=== PATIENT | female | born 1970 | race American Indian/Alaskan Native ===

== ENCOUNTER 2017-02-04 21:51 | Emergency (ER) | payer MEDICAID ==
[2017-02-04 21:51] VITALS: BMI 25.8
[2017-02-04 22:03] VITALS: BP 164/97; RESP 16; TEMP 99.1; O2SAT 98
[2017-02-04] MEDS ORDERED: Albuterol 0.083% Inhal Sol (2.5 mg/3 mL) UD INH STA (22:19)
--- NOTE | 2017-02-04 22:27 | ED PDOC ---
HPI: General Adult Time Seen by Provider: 02/04/17 22:11 Chief Complaint (Nursing): Cough, Cold, Congestion History Per: Patient History/Exam Limitations: clinical condition Additional Complaint(s): Pt. states for the past 2 weeks she's had a cough productive of yellow sputum associated with wheezing and chest pain present only with coughing. Pt. states 1 month ago she was treated for a cough with antibiotics but did not stay in the hospital. Denies fever, hemoptysis, WELLS, chest pain at rest, orthopnea, leg swelling. Past Medical History Reviewed: Historical Data, Nursing Documentation, Vital Signs Vital Signs: Last Vital Signs Temp 99.1 F 02/04/17 22:01 Pulse 78 02/04/17 22:30 Resp 16 02/04/17 22:01 BP 164/97 H 02/04/17 22:01 Pulse Ox 98 02/04/17 22:30 - Medical History PMH: Anemia (secondary to heavy menstruation), Anxiety, Arthritis, Asthma, CAD, CHF, CVA, Depression, Diabetes, Gastritis, Gastrointestinal Ulcer, HTN, Hypercholesterolemia, Hyperlipidemia, Hyperthyroidism (HYPERPARATHYROID), Kidney Stones, Multiple Sclerosis, Parkinson's Disease, Pneumonia (08-19-15), Chronic Kidney Disease, TIA - Surgical History Surgical History: Hernia Repair (Umbilical hernia repair) - Family History Family History: States: Unknown Family Hx - Immunization History Hx Tetanus Toxoid Vaccination: Yes Hx Influenza Vaccination: Yes Hx Pneumococcal Vaccination: Yes - Home Medications Home Medications: Ambulatory Orders Medication Instructions Recorded Famotidine 20 mg PO BID 10/22/16 Gabapentin 300 mg PO BID 10/22/16 Losartan Potassium [Cozaar] 100 mg PO DAILY #30 tablet 10/26/16 Aluminum Hydroxide/Magnesium H 30 ml PO DAILY 01/31/17 [Maalox 30 ml] Azithromycin [Zithromax] 250 mg PO DAILY #6 tab 02/05/17 - Allergies Allergies/Adverse Reactions: Allergies Allergy/AdvReac Type Severity Reaction Status Date / Time aspirin Allergy SHORTNESS Verified 10/24/16 16:08 OF BREATH codeine Allergy RASH Verified 10/24/16 16:08 iodine Allergy SHORTNESS Verified 10/24/16 16:08 OF BREATH ketorolac Allergy SHORTNESS Verified 10/24/16 16:08 OF BREATH ketorolac tromethamine Allergy RASH Verified 10/24/16 16:08 [From Toradol] Latex, Natural Rubber Allergy SHORTNESS Verified 10/24/16 16:08 OF BREATH metoprolol Allergy SHORTNESS Verified 10/24/16 16:08 OF BREATH morphine Allergy SHORTNESS Verified 10/24/16 16:08 OF BREATH orange juice Allergy SHORTNESS Verified 10/24/16 16:08 OF BREATH Penicillins Allergy SHORTNESS Verified 10/24/16 16:08 OF BREATH simvastatin Allergy RASH Verified 10/24/16 16:08 Sulfa (Sulfonamide Allergy RASH Verified 10/24/16 16:08 Antibiotics) tomato Allergy ITCHING Verified 10/24/16 16:08 tramadol Allergy SHORTNESS Verified 10/24/16 16:08 OF BREATH ondansetron HCl AdvReac Intermediate RASH Verified 10/24/16 16:08 [From Zofran (as hydrochloride)] Review of Systems ROS Statement: Except As Marked, All Systems Reviewed And Found Negative Respiratory: Positive for: Cough, Wheezing Physical Exam - Reviewed Nursing Documentation Reviewed: Yes Vital Signs Reviewed: Yes - Physical Exam Appears: Positive for: Well, Non-toxic, No Acute Distress Head Exam: Positive for: ATRAUMATIC, NORMAL INSPECTION, NORMOCEPHALIC Skin: Positive for: Normal Color, Warm. Negative for: Rash Eye Exam: Positive for: EOMI, Normal appearance, PERRL ENT: Positive for: Normal ENT Inspection Neck: Positive for: Normal, Painless ROM Cardiovascular/Chest: Positive for: Regular Rate, Rhythm Respiratory: Positive for: Wheezing (b/l minimal expiratory wheezing). Negative for: Decreased Breath Sounds, Accessory Muscle Use, Crackles, Rales, Rhonchi, Respiratory Distress Gastrointestinal/Abdominal: Positive for: Normal Exam, Soft. Negative for: Tenderness Back: Positive for: Normal Inspection. Negative for: L CVA Tenderness, R CVA Tenderness Extremity: Positive for: Normal ROM, Other (resting tremors noted). Negative for: Calf Tenderness (or swelling b/l) Neurologic/Psych: Positive for: Alert, Oriented - Laboratory Results Result Diagrams: 02/04/17 23:30 02/04/17 23:30 - ECG ECG: Positive for: Interpreted By Me ECG Rhythm: Positive for: Sinus Rhythm. Negative for: ST/T Changes Rate: 78 O2 Sat by Pulse Oximetry: 98 - Radiology X-Ray: Interpreted by Me (CXR) X-Ray Interpretation: No Acute Disease - Progress ED Course And Treament: Labs ordered. Albuterol x 2 ordered. EKG ordered. Pt. placed on cafeteria monitor. Re-evaluation Time: 00:55 (Lungs clear b/l. ) Condition: Re-examined, Improved Disposition - Clinical Impression Clinical Impression: Acute bronchitis - Patient ED Disposition Is Patient to be Admitted: No - Disposition Disposition: Routine/Home Disposition Time: 00:55 Condition: IMPROVED Prescriptions: Azithromycin [Zithromax] 250 mg PO DAILY #6 tab Instructions: Acute Bronchitis (ED) Print Language: SLOVENIAN
[2017-02-04 22:33] VITALS: PULSE 78
[2017-02-04] MEDS ORDERED: Albuterol 0.083% Inhal Sol (2.5 mg/3 mL) UD ONE (22:37)
[2017-02-04 23:44] LABS: BASO # 0.1 K/uL (0.0-0.2); BASO % 1.1 % (0.0-2.0); EOS # 0.1 K/uL (0.0-0.7); EOS % 1.6 % (0.0-4.0); HEMATOCRIT 29.9 % (34.0-47.0); LYMPH # 2.4 K/uL (1.0-4.3); MEAN CELL VOLUME 79.7 fl (81.0-99.0); MEAN CORPUSCULAR HEMOGLOBIN 23.9 pg (27.0-31.0); MEAN PLATELET VOLUME 8.5 fl (7.2-11.7); MONO # 0.5 K/uL (0.0-0.8); MONO % 9.6 % (0.0-10.0); NEUT # 2.1 K/uL (1.8-7.0); NEUT % 41.7 % (50.0-75.0); NRBC % 0.1 % (0.0-0.0); RED CELL DISTRIBUTION WIDTH 16.6 % (11.5-14.5); WHITE BLOOD COUNT 5.1 K/uL (4.8-10.8)
[2017-02-04 23:56] LABS: ALB/GLOB RATIO 1.2 (1.0-2.1); ALKALINE PHOSPHATASE 62 U/L (38-126); ALT/SGPT 24 U/L (9-52); AST/SGOT 24 U/L (14-36); BILIRUBIN,TOTAL 0.4 mg/dl (0.2-1.3); BLOOD UREA NITROGEN 18 mg/dl (7-17); CALCIUM 10.9 mg/dL (8.4-10.2); CARBON DIOXIDE 28 mmol/L (22-30); CHLORIDE 104 mmol/L (98-107); GFR AFRICAN-AMERICAN > 60; GLUCOSE,RANDOM 95 mg/dL (65-105); POTASSIUM 3.4 MMOL/L (3.6-5.0); SODIUM 141 mmol/l (132-148); TOTAL PROTEIN 7.3 G/DL (6.3-8.2)
--- NOTE | 2017-02-05 09:28 | RAD ---
HISTORY: Cough. COMPARISON: 10/25/2016. FINDINGS: LUNGS: No active pulmonary disease. PLEURA: No significant pleural effusion identified, no pneumothorax apparent. CARDIOVASCULAR: No radiographic findings to suggest acute or significant cardiovascular disease. OSSEOUS STRUCTURES: No significant abnormalities. VISUALIZED UPPER ABDOMEN: Normal. OTHER FINDINGS: None. IMPRESSION: No active disease. No significant interval change compared to the prior examination(s).
--- NOTE | 2017-02-06 16:39 | CARD ---
APPROVED REPORT EKG Measurement Heart [id number] ID [id number] <Conclusion> Normal sinus rhythm Moderate voltage criteria for LVH, may be normal variant Borderline ECG
== END 2017-02-05 02:30 | disposition home or self-care (01) ==
LOC: H.ER 21:51
DX: J06.9 Acute upper respiratory infection, unspecified (principal); R05 Cough

== ENCOUNTER 2017-05-27 13:25 | Emergency (ER) | payer MEDICAID ==
[2017-05-27 13:26] VITALS: BMI 22.7
[2017-05-27 13:54] VITALS: BP 158/99
--- NOTE | 2017-05-27 14:04 | ED PDOC ---
HPI: Chest Pain Time Seen by Provider: 05/27/17 13:37 Chief Complaint (Nursing): Chest Pain Chief Complaint (Provider): Chest Pain History Per: Patient History/Exam Limitations: no limitations Additional Complaint(s): 46 y/o female presents to the emergency department with a complaint of worsening chest pain and joint pain. Associated with cough, sputum, shortness of breath, and headache. Reports taking Ibuprofen 3 times a day and gabapentin 2 times a day without improvement. States she told Dr. Soliman her symptoms and wrote her a referral to see a curb setter. Patient has multiple visited within our facility which include 2 visits within this month. Denies fever, diarrhea, or vomiting. Past Medical History Reviewed: Historical Data, Nursing Documentation, Vital Signs Vital Signs: Last Vital Signs Temp 98.0 F 05/27/17 13:29 Pulse 93 H 05/27/17 13:54 Resp 20 05/27/17 13:54 BP 158/99 H 05/27/17 13:54 Pulse Ox 99 05/27/17 14:04 - Medical History PMH: Anemia (secondary to heavy menstruation), Anxiety, Arthritis, Asthma, Bronchitis, CAD, CHF, COPD, CVA, Depression, Diabetes, Gastritis, Gastrointestinal Ulcer, HTN, Hypercholesterolemia, Hyperlipidemia, Hyperthyroidism (hyperthyroidism), Kidney Stones, Multiple Sclerosis, Parkinson' s Disease, Pneumonia (08-19-15), Chronic Kidney Disease, TIA - Surgical History Surgical History: Hernia Repair (Umbilical hernia repair) - Family History Family History: States: Unknown Family Hx - Immunization History Hx Tetanus Toxoid Vaccination: Yes Hx Influenza Vaccination: Yes Hx Pneumococcal Vaccination: Yes - Home Medications Home Medications: Ambulatory Orders Medication Instructions Recorded Albuterol HFA [Ventolin HFA 90 2 puff IH [id number] 05/20/17 mcg/actuation (8 g)] Atorvastatin [Lipitor] 20 mg PO DAILY 05/20/17 Cetirizine HCl [Zyrtec Allergy] 10 mg PO DAILY 05/20/17 Cholecalciferol [Vitamin D] 5,000 unit PO QWK 05/20/17 Cyclobenzaprine [Cyclobenzaprine 10 mg PO TID #14 tab 05/20/17 HCl] Famotidine [Pepcid] 40 mg PO DAILY 05/20/17 Ibuprofen [Motrin] 600 mg PO TID 05/20/17 Indomethacin [Indocin] 25 mg PO BID 05/20/17 Naproxen [Naprosyn Tab] 250 mg PO BID 05/20/17 - Allergies Allergies/Adverse Reactions: Allergies Allergy/AdvReac Type Severity Reaction Status Date / Time acetaminophen Allergy ITCHING Verified 05/27/17 13:29 codeine Allergy RASH Verified 05/27/17 13:29 iodine Allergy ITCHING Verified 05/27/17 13:29 ketorolac Allergy ITCHING Verified 05/27/17 13:29 ketorolac tromethamine Allergy RASH Verified 05/27/17 13:29 [From Toradol] Latex, Natural Rubber Allergy ITCHING Verified 05/27/17 13:29 morphine Allergy ITCHING Verified 05/27/17 13:29 orange juice Allergy ITCHING Verified 05/27/17 13:29 Penicillins Allergy ITCHING Verified 05/27/17 13:29 Sulfa (Sulfonamide Allergy RASH Verified 05/27/17 13:29 Antibiotics) tomato Allergy ITCHING Verified 05/27/17 13:29 tramadol Allergy ITCHING Verified 05/27/17 13:29 ondansetron HCl AdvReac Intermediate RASH Verified 05/27/17 13:29 [From Zofran (as hydrochloride)] Review of Systems ROS Statement: Except As Marked, All Systems Reviewed And Found Negative Constitutional: Negative for: Fever Cardiovascular: Positive for: Chest Pain Respiratory: Positive for: Cough, Shortness of Breath, Sputum Gastrointestinal: Negative for: Vomiting, Diarrhea Musculoskeletal: Positive for: Other (Joint pain) Neurological: Positive for: Headache Physical Exam - Reviewed Nursing Documentation Reviewed: Yes Vital Signs Reviewed: Yes - Physical Exam Appears: Positive for: Non-toxic, No Acute Distress Head Exam: Positive for: ATRAUMATIC, NORMAL INSPECTION, NORMOCEPHALIC Skin: Positive for: Normal Color, Warm, Dry Neck: Positive for: Normal, Supple Cardiovascular/Chest: Positive for: Regular Rate, Rhythm. Negative for: Murmur Respiratory: Positive for: Normal Breath Sounds. Negative for: Accessory Muscle Use, Respiratory Distress Gastrointestinal/Abdominal: Positive for: Normal Exam, Soft. Negative for: Tenderness Back: Positive for: Normal Inspection Extremity: Positive for: Normal ROM. Negative for: Pedal Edema Neurologic/Psych: Positive for: Alert, Oriented (x3) - Laboratory Results Result Diagrams: 05/27/17 14:05 05/27/17 14:05 - ECG O2 Sat by Pulse Oximetry: 99 (RA) Pulse Ox Interpretation: Normal Medical Decision Making Medical Decision Making: Time: 1400 Initial Impression: Chest and joint pain Initial Plan: Scribe Attestation: Documented by Joy Holloway, acting as a scribe for Heather Gupta MD. Provider Scribe Attestation: All medical record entries made by the Scribe were at my direction and personally dictated by me. I have reviewed the chart and agree that the record accurately reflects my personal performance of the history, physical exam, medical decision making, and the department course for this patient. I have also personally directed, reviewed, and agree with the discharge instructions and disposition. Disposition - Clinical Impression Clinical Impression: Chronic chest pain - Patient ED Disposition Is Patient to be Admitted: No Doctor Will See Patient In The: Office Counseled Patient/Family Regarding: Diagnosis, Need For Followup - Disposition Referrals: Jordi Soliman MD [Staff Provider] - Luke Soliman MD [Medical Doctor] - Disposition: Routine/Home Disposition Time: 16:09 Condition: STABLE Instructions: Chest Pain (ED) Forms: [facility] (Belarusian) - POA Present On Arrival: None
[2017-05-27 14:31] LABS: EOS % 0.6 % (0.0-4.0); LYMPH % 21.8 % (20.0-40.0); MEAN CORPUSCULAR HEMOGLOBIN 21.7 pg (27.0-31.0); MEAN CORPUSCULAR HGB CONC 29.6 g/dL (33.0-37.0); MEAN PLATELET VOLUME 8.4 fl (7.2-11.7); MONO # 0.4 K/uL (0.0-0.8); MONO % 8.2 % (0.0-10.0); NEUT # 3.2 K/uL (1.8-7.0); NEUT % 68.4 % (50.0-75.0); NRBC % 0.1 % (0.0-0.0); RED CELL DISTRIBUTION WIDTH 17.8 % (11.5-14.5); WHITE BLOOD COUNT 4.7 K/uL (4.8-10.8)
[2017-05-27 14:36] LABS: MEAN CELL VOLUME 73.3 fl (81.0-99.0)
[2017-05-27 14:43] LABS: BLOOD UREA NITROGEN 13 mg/dl (7-17); CALCIUM 11.4 mg/dL (8.4-10.2); CARBON DIOXIDE 29 mmol/L (22-30); CHLORIDE 106 mmol/L (98-107); GFR AFRICAN-AMERICAN > 60; GLUCOSE,RANDOM 84 mg/dL (65-105); POTASSIUM 3.1 MMOL/L (3.6-5.0); SODIUM 144 mmol/l (132-148)
[2017-05-27 18:46] VITALS: TEMP 99.4
[2017-05-27 19:30] VITALS: PULSE 125; RESP 17; O2SAT 99
== END 2017-05-27 20:15 | disposition home or self-care (01) ==
LOC: H.ER 13:25
DX: R07.89 Other chest pain (principal); E05.90 Thyrotoxicosis, unspecified without thyrotoxic crisis or storm; E11.22 Type 2 diabetes mellitus with diabetic chronic kidney disease; E78.00 Pure hypercholesterolemia, unspecified; F32.9 Major depressive disorder, single episode, unspecified; F41.9 Anxiety disorder, unspecified; G20 Parkinson's disease; G35 Multiple sclerosis; G89.29 Other chronic pain; I50.9 Heart failure, unspecified; Z86.73 Personal history of transient ischemic attack (TIA), and cerebral infarction without residual deficits; J44.9 Chronic obstructive pulmonary disease, unspecified; Z87.442 Personal history of urinary calculi; Z88.0 Allergy status to penicillin

== ENCOUNTER 2017-05-28 13:11 | Emergency (ER) | payer MEDICAID ==
[2017-05-28 13:11] VITALS: BMI 22.7
[2017-05-28 13:16] VITALS: BP 125/106; PULSE 96; RESP 18; TEMP 99; O2SAT 97
--- NOTE | 2017-05-28 13:34 | ED PDOC ---
Upper Extremity Pain/Injury Time Seen by Provider: 05/28/17 13:19 Chief Complaint (Nursing): Upper Extremity Problem/Injury Chief Complaint (Provider): Chest Wall Pain History Per: Patient History/Exam Limitations: no limitations Onset/Duration Of Symptoms: Days (x2) Current Symptoms Are (Timing): Still Present Additional Complaint(s): Mahogany Green is a 46 year old female presenting to the ED for an evaluation of chest wall pain. This is the patient's 6th ER visit for the same reason. PMD: MD Jourdan Past Medical History Reviewed: Historical Data, Nursing Documentation, Vital Signs Vital Signs: Last Vital Signs Temp 99 F 05/28/17 13:14 Pulse 96 H 05/28/17 13:14 Resp 18 05/28/17 13:14 BP 125/106 H 05/28/17 13:14 Pulse Ox 97 05/28/17 13:14 - Medical History PMH: Anemia (secondary to heavy menstruation), Anxiety, Arthritis, Asthma, Bronchitis, CAD, CHF, COPD, CVA, Depression, Diabetes, Gastritis, Gastrointestinal Ulcer, HTN, Hypercholesterolemia, Hyperlipidemia, Hyperthyroidism (hyperthyroidism), Kidney Stones, Multiple Sclerosis, Parkinson' s Disease, Pneumonia (08-19-15), Chronic Kidney Disease, TIA - Surgical History Surgical History: Hernia Repair (Umbilical hernia repair) - Family History Family History: States: Unknown Family Hx - Immunization History Hx Tetanus Toxoid Vaccination: Yes Hx Influenza Vaccination: Yes Hx Pneumococcal Vaccination: Yes - Home Medications Home Medications: Ambulatory Orders Medication Instructions Recorded Albuterol HFA [Ventolin HFA 90 2 puff IH [id number] 05/20/17 mcg/actuation (8 g)] Atorvastatin [Lipitor] 20 mg PO DAILY 05/20/17 Cetirizine HCl [Zyrtec Allergy] 10 mg PO DAILY 05/20/17 Cholecalciferol [Vitamin D] 5,000 unit PO QWK 05/20/17 Cyclobenzaprine [Cyclobenzaprine 10 mg PO TID #14 tab 05/20/17 HCl] Famotidine [Pepcid] 40 mg PO DAILY 05/20/17 Ibuprofen [Motrin] 600 mg PO TID 05/20/17 Indomethacin [Indocin] 25 mg PO BID 05/20/17 Naproxen [Naprosyn Tab] 250 mg PO BID 05/20/17 - Allergies Allergies/Adverse Reactions: Allergies Allergy/AdvReac Type Severity Reaction Status Date / Time acetaminophen Allergy ITCHING Verified 05/27/17 13:29 codeine Allergy RASH Verified 05/27/17 13:29 iodine Allergy ITCHING Verified 05/27/17 13:29 ketorolac Allergy ITCHING Verified 05/27/17 13:29 ketorolac tromethamine Allergy RASH Verified 05/27/17 13:29 [From Toradol] Latex, Natural Rubber Allergy ITCHING Verified 05/27/17 13:29 morphine Allergy ITCHING Verified 05/27/17 13:29 orange juice Allergy ITCHING Verified 05/27/17 13:29 Penicillins Allergy ITCHING Verified 05/27/17 13:29 Sulfa (Sulfonamide Allergy RASH Verified 05/27/17 13:29 Antibiotics) tomato Allergy ITCHING Verified 05/27/17 13:29 tramadol Allergy ITCHING Verified 05/27/17 13:29 ondansetron HCl AdvReac Intermediate RASH Verified 05/27/17 13:29 [From Zofran (as hydrochloride)] Review of Systems ROS Statement: Except As Marked, All Systems Reviewed And Found Negative Cardiovascular: Positive for: Chest Pain (chest wall pain) Physical Exam - Reviewed Nursing Documentation Reviewed: Yes Vital Signs Reviewed: Yes - Physical Exam Appears: Positive for: Non-toxic, No Acute Distress Head Exam: Positive for: ATRAUMATIC, NORMOCEPHALIC Skin: Positive for: Normal Color, Warm, Dry Eye Exam: Positive for: Normal appearance Neck: Positive for: Normal Cardiovascular/Chest: Negative for: Chest Non Tender (tenderness to left chest wall ) Respiratory: Negative for: Respiratory Distress Neurologic/Psych: Positive for: Alert, Oriented - ECG O2 Sat by Pulse Oximetry: 97 (RA) Pulse Ox Interpretation: Normal Medical Decision Making Medical Decision Making: Time: 13:19 Impression: Chest Wall Pain Plan: * ED EKG * Troponin I * Reevaluation Scribe Attestation: Documented by Cleopatra Rosado, acting as a scribe for Alicia Cardoza MD. Provider Scribe Attestation: All medical record entries made by the Scribe were at my direction and personally dictated by me. I have reviewed the chart and agree that the record accurately reflects my personal performance of the history, physical exam, medical decision making, and the department course for this patient. I have also personally directed, reviewed, and agree with the discharge instructions and disposition. Disposition - Disposition
--- NOTE | 2017-05-28 17:20 | CARD ---
APPROVED REPORT EKG Measurement Heart [id number] <Conclusion> Sinus rhythm with premature atrial complexes Nonspecific ST and T wave abnormality Abnormal ECG motion artefact present
== END 2017-05-28 16:12 | disposition home or self-care (01) ==
LOC: H.ER 13:11
DX: R07.89 Other chest pain (principal)

== ENCOUNTER 2017-09-16 14:30 | Emergency (ER) | payer MEDICAID ==
[2017-09-16 14:30] VITALS: BMI 22.6
[2017-09-16 14:36] VITALS: BP 168/100; PULSE 80; RESP 16; TEMP 98.7; O2SAT 98
[2017-09-16] MEDS ORDERED: Albuterol-Ipratrop 3 mg / 0.5 (3 ml) UD IH STA (15:11)
--- NOTE | 2017-09-16 15:15 | ED PDOC ---
HPI: SOB/CHF/COPD Time Seen by Provider: 09/16/17 14:43 Chief Complaint (Nursing): Abdominal Pain History Per: Patient Onset/Duration Of Symptoms: Other (3 weeks) Current Respiratory Medications: See Home Med List Severity: Mild Associated Symptoms: Productive Cough. denies: Fever Additional Complaint(s): SOB and cough productive white sputum x 3 weeks. Denies fever. Has pain right side of chest and both arms when coughing. Past Medical History Vital Signs: Last Vital Signs Temp 98.7 F 09/16/17 14:34 Pulse 80 09/16/17 14:34 Resp 16 09/16/17 14:34 BP 168/100 H 09/16/17 14:34 Pulse Ox 98 09/16/17 15:15 - Medical History PMH: Anemia (secondary to heavy menstruation), Anxiety, Arthritis, Asthma, Bronchitis, CAD, CHF, COPD, CVA, Depression, Diabetes, Gastritis, Gastrointestinal Ulcer, HTN, Hypercholesterolemia, Hyperlipidemia, Hyperthyroidism (hyperthyroidism), Kidney Stones, Multiple Sclerosis, Parkinson' s Disease, Pneumonia (08-19-15), Chronic Kidney Disease, TIA Denies: Benign Prostatic Hyperplasia - Surgical History Surgical History: Hernia Repair (Umbilical hernia repair) - Family History Family History: States: Unknown Family Hx - Immunization History Hx Tetanus Toxoid Vaccination: Yes Hx Influenza Vaccination: Yes Hx Pneumococcal Vaccination: Yes - Home Medications Home Medications: Ambulatory Orders Medication Instructions Recorded amLODIPine [Norvasc] 10 mg PO DAILY tab 06/06/17 Diclofenac [Diclofenac Sodium] 75 mg PO BID PRN 07/01/17 Gabapentin [Neurontin] 300 mg PO TID 07/01/17 Ibuprofen [Motrin Tab] 600 mg PO BID 07/01/17 Multivitamin [Daily Jameson] 1 tab PO DAILY 07/01/17 Omeprazole 40 mg PO AC 07/01/17 Albuterol HFA [Ventolin HFA 90 2 puff IH Q4H #1 puff 09/16/17 mcg/actuation (8 g)] Azithromycin [Zithromax] 250 mg PO DAILY #6 tab 09/16/17 - Allergies Allergies/Adverse Reactions: Allergies Allergy/AdvReac Type Severity Reaction Status Date / Time acetaminophen Allergy ITCHING Verified 09/12/17 15:24 codeine Allergy RASH Verified 09/12/17 15:24 iodine Allergy ITCHING Verified 09/12/17 15:24 ketorolac Allergy ITCHING Verified 09/12/17 15:24 ketorolac tromethamine Allergy RASH Verified 09/12/17 15:24 [From Toradol] Latex, Natural Rubber Allergy ITCHING Verified 09/12/17 15:24 morphine Allergy ITCHING Verified 09/12/17 15:24 orange juice Allergy ITCHING Verified 09/12/17 15:24 Penicillins Allergy ITCHING Verified 09/12/17 15:24 Sulfa (Sulfonamide Allergy RASH Verified 09/12/17 15:24 Antibiotics) tomato Allergy ITCHING Verified 09/12/17 15:24 tramadol Allergy ITCHING Verified 09/12/17 15:24 ondansetron HCl AdvReac Intermediate RASH Verified 09/12/17 15:24 [From Zofran (as hydrochloride)] Review of Systems Constitutional: Negative for: Fever Respiratory: Positive for: Cough, Shortness of Breath, Pleuritic Pain, Sputum Gastrointestinal: Negative for: Nausea, Vomiting, Abdominal Pain, Diarrhea Physical Exam - Physical Exam Appears: Positive for: Non-toxic, No Acute Distress Skin: Positive for: Normal Color, Warm, DRY Cardiovascular/Chest: Positive for: Regular Rate, Rhythm Respiratory: Positive for: Rhonchi, Wheezing. Negative for: Respiratory Distress Neurologic/Psych: Positive for: Alert, Oriented, Aphasia (Expressive) - ECG O2 Sat by Pulse Oximetry: 98 Disposition - Clinical Impression Clinical Impression: Bronchitis - Patient ED Disposition Is Patient to be Admitted: No Counseled Patient/Family Regarding: Studies Performed, Diagnosis, Need For Followup, Rx Given - Disposition Referrals: [facility] [Outside] Disposition: Routine/Home Disposition Time: 17:00 Condition: FAIR Prescriptions: Albuterol HFA [Ventolin HFA 90 mcg/actuation (8 g)] 2 puff IH Q4H #1 puff Azithromycin [Zithromax] 250 mg PO DAILY #6 tab Instructions: Acute Bronchitis (ED) Forms: [employer] (Sinhala)
--- NOTE | 2017-09-16 17:02 | RAD ---
HISTORY: cough COMPARISON: Chest radiograph dated 02/04/2017. TECHNIQUE: Chest PA and lateral FINDINGS: LUNGS: No active pulmonary disease. PLEURA: No significant pleural effusion identified. No pneumothorax apparent. CARDIOVASCULAR: Cardiomediastinal silhouette stably enlarged. OSSEOUS STRUCTURES: Unchanged. VISUALIZED UPPER ABDOMEN: Normal. OTHER FINDINGS: None. IMPRESSION: No active disease.
[2017-09-16] MEDS ORDERED: Albuterol-Ipratrop 3 mg / 0.5 (3 ml) UD INH STA (20:55)
== END 2017-09-16 22:59 | disposition home or self-care (01) ==
LOC: H.ER 14:30
DX: J40 Bronchitis, not specified as acute or chronic (principal); E05.90 Thyrotoxicosis, unspecified without thyrotoxic crisis or storm; E78.00 Pure hypercholesterolemia, unspecified; G20 Parkinson's disease; G35 Multiple sclerosis; I13.0 Hypertensive heart and chronic kidney disease with heart failure and stage 1 through stage 4 chronic kidney disease, or unspecified chronic kidney disease; Z86.73 Personal history of transient ischemic attack (TIA), and cerebral infarction without residual deficits; J44.9 Chronic obstructive pulmonary disease, unspecified; Z88.0 Allergy status to penicillin

== ENCOUNTER 2017-10-02 14:23 | Inpatient (IN) | payer MEDICAID ==
[2017-10-02 14:23] VITALS: BMI 24.5
[2017-10-02] MEDS ORDERED: Albuterol-Ipratrop 3 mg / 0.5 (3 ml) UD ONE (17:50)
[2017-10-02] MEDS: Albuterol-Ipratrop 3 mg / 0.5 (3 ml) UD IH SCH (17:50)
--- NOTE | 2017-10-02 18:57 | ED PDOC ---
HPI: CCC, URI, Sore Throat Time Seen by Provider: 10/02/17 16:47 Chief Complaint (Nursing): Flu-like Symptoms Chief Complaint (Provider): Flu-like symptoms History Per: Patient History/Exam Limitations: no limitations Onset/Duration Of Symptoms: Days (x4) Current Symptoms Are (Timing): Still Present Sick Contacts (Context): None Associated Symptoms: Fever (subjective), Cough, Other (body aches, shortness of breath. ). denies: Nausea, Vomiting, Diarrhea Ear Symptoms: Bilateral: None Additional Complaint(s): Mahogany Green is a 46 year old female, with a past medical history of CVA, who presents to the emergency department complaining of feeling feverish, weak, body aches and cough onset for x4 days. Patient is also complaining of wheezing and shortness of breath. She denies any chest pain, recent travels, sick contacts, nausea, vomit, diarrhea, abdominal pain, flank pain, or urinary symptoms. No further medical complaints. PMD: Dr. Soliman Past Medical History Reviewed: Historical Data, Nursing Documentation, Vital Signs Vital Signs: Last Vital Signs Temp 98.0 F 10/02/17 15:29 Pulse 92 H 10/02/17 15:29 Resp 16 10/02/17 15:29 BP 146/70 10/02/17 15:29 Pulse Ox 100 10/02/17 19:17 - Medical History PMH: Anemia (secondary to heavy menstruation), Anxiety, Arthritis, Asthma, Bronchitis, CAD, CHF, COPD, CVA, Depression, Diabetes, Gastritis, Gastrointestinal Ulcer, HTN, Hypercholesterolemia, Hyperlipidemia, Hyperthyroidism (hyperthyroidism), Kidney Stones, Multiple Sclerosis, Parkinson' s Disease, Pneumonia (08-19-15), Chronic Kidney Disease, TIA Denies: Benign Prostatic Hyperplasia - Surgical History Surgical History: Hernia Repair (Umbilical hernia repair) - Family History Family History: States: Unknown Family Hx - Social History Current smoker - smoking cessation education provided: No Alcohol: None Drugs: Denies - Immunization History Hx Tetanus Toxoid Vaccination: Yes Hx Influenza Vaccination: Yes Hx Pneumococcal Vaccination: Yes - Home Medications Home Medications: Ambulatory Orders Medication Instructions Recorded Diclofenac 75 mg PO BID PRN 07/01/17 Gabapentin [Neurontin] 300 mg PO TID 07/01/17 Ibuprofen [Motrin Tab] 600 mg PO BID 07/01/17 Multivitamin [Daily Jameson] 1 tab PO DAILY 07/01/17 Omeprazole 40 mg PO AC 07/01/17 Albuterol HFA [Ventolin HFA 90 2 puff IH Q4H #1 puff 09/16/17 mcg/actuation (8 g)] Losartan Potassium 50 mg PO DAILY 09/28/17 Metoprolol Succinate [Toprol XL] 25 mg PO DAILY 09/28/17 - Allergies Allergies/Adverse Reactions: Allergies Allergy/AdvReac Type Severity Reaction Status Date / Time acetaminophen Allergy ITCHING Verified 10/02/17 15:29 codeine Allergy RASH Verified 10/02/17 15:29 iodine Allergy ITCHING Verified 10/02/17 15:29 ketorolac Allergy ITCHING Verified 10/02/17 15:29 ketorolac tromethamine Allergy RASH Verified 10/02/17 15:29 [From Toradol] Latex, Natural Rubber Allergy ITCHING Verified 10/02/17 15:29 morphine Allergy ITCHING Verified 10/02/17 15:29 orange juice Allergy ITCHING Verified 10/02/17 15:29 Penicillins Allergy ITCHING Verified 10/02/17 15:29 Sulfa (Sulfonamide Allergy RASH Verified 10/02/17 15:29 Antibiotics) tomato Allergy ITCHING Verified 10/02/17 15:29 tramadol Allergy ITCHING Verified 10/02/17 15:29 ondansetron HCl AdvReac Intermediate RASH Verified 10/02/17 15:29 [From Zofran (as hydrochloride)] Review of Systems ROS Statement: Except As Marked, All Systems Reviewed And Found Negative Constitutional: Positive for: Fever (subjective), Weakness (generalized), Other (body aches) Cardiovascular: Negative for: Chest Pain Respiratory: Positive for: Cough, Shortness of Breath, Wheezing Gastrointestinal: Negative for: Nausea, Vomiting, Abdominal Pain, Diarrhea Genitourinary Female: Negative for: Dysuria, Incontinence Musculoskeletal: Positive for: Leg Pain (b/l knee pain). Negative for: Back Pain Physical Exam - Reviewed Nursing Documentation Reviewed: Yes Vital Signs Reviewed: Yes - Physical Exam Comments: GENERAL APPEARANCE: Patient is awake, alert, oriented x 3, in no acute distress. SKIN: Warm, dry; (-) cyanosis, (-) rash. (-) Decubitus Ulcer EYES: (-) conjunctival pallor, (-) scleral icterus, (-) conjunctival hemorrhage. ENMT: Mucous membranes moist. TMs: (-) erythema. Airway patent: (-) stridor. Pharynx: (-) erythema, (-) exudate. NECK: (-) tenderness, (-) stiffness, (-) meningismus, (-) lymphadenopathy. CHEST AND RESPIRATORY: (-) accessory muscle use. Lungs: (-) rales, (-) rhonchi, (+) expiratory wheezes, (-) rub; breath sounds equal bilaterally. HEART AND CARDIOVASCULAR: (-) irregularity; (-) murmur, (-) gallop, (-) rub. ABDOMEN AND GI: Soft; (-) tenderness, (-) guarding; (-) organomegaly; (-) mass; (-) CVA tenderness. EXTREMITIES: (-) deformity; (-) cellulitis, (-) lymphangitis; (-) subungual hemorrhage; (-) edema. NEURO AND PSYCH: Mental status as above; (-) focal findings. - Laboratory Results Result Diagrams: 10/02/17 19:52 10/02/17 19:52 - ECG O2 Sat by Pulse Oximetry: 100 (RA) Pulse Ox Interpretation: Normal Medical Decision Making Medical Decision Making: Initial Impression: Fever Initial Plan: --Chest one view [RAD] --Nebulizer treatment --Peak flow pre/post Tx --Influenza A B --reevaluation --CXR : NAD, as read by SANDI. --Rapid flu : (-) --On reevaluation, patient reports improvement of wheezing but adds she has a pain to both arms, left arm mostly, and left sided chest pain for the past x4 days. On physical exam, lungs: clear auscultation b/l. Cardiac: Regular rate and rhythm. --Considering patient's symptoms and risk factors, labs and EKG ordered. --EKG : SR at 81 bpm, with PVCs, no acute ST chnages, as read by SANDI. --Labs reviewed : K 2.9, trop (-), BNP (-) --KCl PO 40 mEq PO, KCl 10 mEq IV x2 ordered. Call placed to med director of distribution Dr. Elmo Fields, and case discussed, he agrees with inpt observation. Bridge orders placed. On re-evaluation, patient is ambulating in the ER with a normal gait, in no acute distress. Patient notified of diagnostic results and of diagnosis. Patient states she fully agrees with and understands further plan of care and of final disposition. I have given the patient opportunity to ask any additional questions. ~ Scribe Attestation: Documented by Liang Meier, acting as a scribe for Krys Dougherty PA-C. Provider Scribe Attestation: All medical record entries made by the Scribe were at my direction and personally dictated by me. I have reviewed the chart and agree that the record accurately reflects my personal performance of the history, physical exam, medical decision making, and the department course for this patient. I have also personally directed, reviewed, and agree with the discharge instructions and disposition. Disposition - Clinical Impression Clinical Impression: Hypokalemia, Viral syndrome - Patient ED Disposition Is Patient to be Admitted: Yes Counseled Patient/Family Regarding: Studies Performed, Diagnosis - Disposition Disposition Time: 21:00 Condition: STABLE Forms: [employer] (Wolof) - PA / OUTSIDE [employer] OPERATOR / Resident Statement MD/ has reviewed & agrees with the documentation as recorded.
[2017-10-02 19:56] LABS: BASO # 0.1 K/uL (0.0-0.2); EOS % 0.5 % (0.0-4.0); LYMPH # 1.5 K/uL (1.0-4.3); LYMPH % 29.2 % (20.0-40.0); MEAN CELL VOLUME 86.5 fl (81.0-99.0); MEAN CORPUSCULAR HEMOGLOBIN 26.5 pg (27.0-31.0); MEAN CORPUSCULAR HGB CONC 30.6 g/dL (33.0-37.0); MEAN PLATELET VOLUME 8.5 fl (7.2-11.7); MONO # 0.4 K/uL (0.0-0.8); MONO % 7.8 % (0.0-10.0); NEUT # 3.3 K/uL (1.8-7.0); NEUT % 61.5 % (50.0-75.0); NRBC % 0.1 % (0.0-0.0); RBC 4.17 Mil/uL (3.80-5.20); RED CELL DISTRIBUTION WIDTH 15.8 % (11.5-14.5); WHITE BLOOD COUNT 5.3 K/uL (4.8-10.8)
[2017-10-02 20:32] LABS: ALB/GLOB RATIO 1.1 (1.0-2.1); ALBUMIN 4.2 g/dL (3.5-5.0); ALT/SGPT 31 U/L (9-52); AST/SGOT 37 U/L (14-36); BLOOD UREA NITROGEN 19 mg/dl (7-17); CALCIUM 11.4 mg/dL (8.4-10.2); GFR AFRICAN-AMERICAN > 60; GFR NON-AFRICAN AMERICAN > 60
[2017-10-02 20:44] LABS: B-TYPE NATRIURETIC PEPTIDE 97.1 pg/ml (0-450)
[2017-10-02] MEDS ORDERED: Potassium CL 10 MEQ/50 ML 50 ML IVPB STA (20:47)
[2017-10-02 20:53] LABS: SQUAMOUS EPITHIAL 2 /hpf (0-5); URINE BILIRUBIN NEGATIVE (NEGATIVE); URINE BLOOD NEGATIVE (NEGATIVE); URINE CLARITY CLOUDY (Clear); URINE COLOR AMBER (YELLOW); URINE GLUCOSE (UA) NEG (Normal); URINE LEUKOCYTE ESTERASE NEG Leu/uL (Negative); URINE NITRATE NEGATIVE (NEGATIVE); URINE PROTEIN 30 mg/dL (NEGATIVE); URINE UROBILINOGEN 0.2-1.0 mg/dL (0.2-1.0)
[2017-10-02] MEDS ORDERED: Potassium Chloride 20 mEq/15 ml LIQ UD PO ONE (21:00)
[2017-10-02] MEDS ORDERED: Potassium CL 10 MEQ/50 ML 50 ML IVPB SCH (21:00)
[2017-10-02] MEDS ORDERED: Potassium CL 10 MEQ/50 ML 50 ML ONE (21:48)
[2017-10-02] MEDS ORDERED: KCL 40MEQ/NS 1L 1,000 ML IV SCH (22:30)
[2017-10-02] MEDS: KCL 40MEQ/NS 1L 1,000 ML IV SCH (23:43)
[2017-10-03] MEDS ORDERED: DICLOFENAC 75 MG PO PRN (02:08)
[2017-10-03] MEDS ORDERED: Potassium Chloride 10 mEq ER Tab PO ONE (02:30)
[2017-10-03 07:09] LABS: ALB/GLOB RATIO 1.1 (1.0-2.1); ALBUMIN 3.5 g/dL (3.5-5.0); ALT/SGPT 29 U/L (9-52); AST/SGOT 25 U/L (14-36); BLOOD UREA NITROGEN 15 mg/dl (7-17); CALCIUM 11.1 mg/dL (8.4-10.2); GFR AFRICAN-AMERICAN > 60; GFR NON-AFRICAN AMERICAN > 60
[2017-10-03] MEDS: Multivitamin With Minerals Tab PO SCH (09:39)
[2017-10-03] MEDS: KCL 40MEQ/NS 1L 1,000 ML IV SCH ×3 (09:42→18:25)
[2017-10-03] MEDS: Albuterol HFA 90 mcg/actuation (8 g) IH SCH ×4 (09:43→22:35)
[2017-10-03] MEDS: Enoxaparin 40 mg Syringe SC SCH ×2 (09:44→09:50)
[2017-10-03 09:45] LABS: HEMOGLOBIN 11.6 g/dL (12.0-16.0); MEAN CELL VOLUME 85.8 fl (81.0-99.0); MEAN CORPUSCULAR HEMOGLOBIN 27.1 pg (27.0-31.0); MEAN CORPUSCULAR HGB CONC 31.6 g/dL (33.0-37.0); RBC 4.28 Mil/uL (3.80-5.20); WHITE BLOOD COUNT 4.9 K/uL (4.8-10.8)
[2017-10-03] MEDS: Metoprolol Succinate 25 mg XL Tab PO SCH (12:47)
--- NOTE | 2017-10-03 12:49 | RAD ---
PROCEDURE: CHEST RADIOGRAPH, 1 VIEW HISTORY: cough COMPARISON: Chest radiograph dated 09/16/2017. FINDINGS: LUNGS: Clear. PLEURA: No pneumothorax or pleural fluid seen. CARDIOVASCULAR: Cardiomediastinal silhouette stably enlarged. OSSEOUS STRUCTURES: Unchanged. VISUALIZED UPPER ABDOMEN: Normal. OTHER FINDINGS: None. IMPRESSION: No active disease.
--- NOTE | 2017-10-03 12:56 | CP.PCM.HP ---
Addendum entered and electronically signed by Hoa Lopez MD 10/03/17 17 :13: -Acute asthma exacerbation-resolved; asthma type unknown -Hypertension controlled -Chest pain :non cardiac Original Note: <Hoa Lopez - Last Filed: 10/03/17 12:49> History of Present Illness - History of Present Illness History of Present Illness: 46 yo female presented to ED with complaint of left chest pain and left arm pain x 4 days. PMH includes CVA x 2, GISSELLE secondary to menorrhagia, HTN, CAD, anxiety, asthma, and speech impairment. Associated symptoms are subjective fever , weakness, body aches, non-productive cough, wheezing, and SOB. Patient was recently discharged from [facility] [place] ER where she presented with similar symptoms and had negative cardiac workup. Denies nausea, vomiting, diarrhea, abdominal pain, dysuria, or flank pain. PMD: Dr. Soliman PMHx: CVA x 2, GISSELLE secondary to menorrhagia, HTN, CAD, anxiety, asthma, and speech impairment SurHx: umbilical hernia repair FMHx: non-contributory SocHx: denies tobacco, EToH, or drugs Medications: see medication reconciliation Allergies: codeine, acetaminophen, iodine, morphine, ketolorac, latex, pencillin , sulfa, tramadol, zofran Present on Admission - Present on Admission Any Indicators Present on Admission: No History of DVT/PE: No History of Uncontrolled Diabetes: No Urinary Catheter: No Decubitus Ulcer Present: No History Surgical Site Infection Following: None Review of Systems - Constitutional Constitutional: Fever, Weakness. absent: Chills - EENT Eyes: absent: Blurred Vision, Change in Vision Ears: absent: Ear Pain Nose/Mouth/Throat: absent: Nasal Congestion, Nasal Discharge - Cardiovascular Cardiovascular: Chest Pain, Dyspnea. absent: Syncope - Respiratory Respiratory: absent: Hemoptysis - Gastrointestinal Gastrointestinal: absent: Abdominal Pain, Nausea, Vomiting - Genitourinary Genitourinary: absent: Difficulty Urinating, Dysuria - Menstruation Menstruation: Heavy Menses - Neurological Neurological: absent: Confusion - Endocrine Endocrine: absent: Palpitations - Hematologic/Lymphatic Hematologic: absent: Easy Bleeding, Easy Bruising Past Patient History - Infectious Disease Hx of Infectious Diseases: None - Tetanus Immunizations Tetanus Immunization: Unknown - Past Medical History & Family History Past Medical History?: Yes - Past Social History Smoking Status: Never Smoked - CARDIAC Hx Cardiac Disorders: Yes Hx Congestive Heart Failure: Yes Hx Hypercholesterolemia: Yes Hx Hypotension: Yes - PULMONARY Hx Respiratory Disorders: Yes Hx Asthma: Yes Hx Chronic Obstructive Pulmonary Disease (COPD): Yes Hx Pneumonia: Yes - NEUROLOGICAL Hx Neurological Disorder: Yes Hx Multiple Sclerosis: Yes Hx Parkinson's Disease: Yes Hx Transient Ischemic Attacks (TIA): Yes - HEENT Hx HEENT Problems: No - RENAL Hx Chronic Kidney Disease: Yes Hx Kidney Stones: Yes - ENDOCRINE/METABOLIC Hx Endocrine Disorders: Yes Hx Diabetes Mellitus Type 2: Yes Hx Hyperthyroidism: Yes - HEMATOLOGICAL/ONCOLOGICAL Hx Blood Disorders: Yes Hx AIDS: No Hx Anemia: Yes Hx Human Immunodeficiency Virus (HIV): No - INTEGUMENTARY Hx Dermatological Problems: No - MUSCULOSKELETAL/RHEUMATOLOGICAL Hx Musculoskeletal Disorders: Yes Hx Arthritis: Yes Hx Back Pain: Yes Hx Falls: Yes Hx Osteoarthritis: Yes - GASTROINTESTINAL Hx Gastrointestinal Disorders: Yes Hx Gastritis: Yes Hx Gastroesophageal Reflux: Yes - GENITOURINARY/GYNECOLOGICAL Hx Genitourinary Disorders: No - PSYCHIATRIC Hx Psychophysiologic Disorder: Yes Hx Depression: Yes Hx Substance Use: No - SURGICAL HISTORY Hx Surgeries: Yes Hx Herniorrhaphy: Yes - ANESTHESIA Hx Anesthesia: Yes Hx Anesthesia Reactions: No Hx Malignant Hyperthermia: No Meds Allergies/Adverse Reactions: Allergies Allergy/AdvReac Type Severity Reaction Status Date / Time acetaminophen Allergy ITCHING Verified 10/02/17 15:29 codeine Allergy RASH Verified 10/02/17 15:29 iodine Allergy ITCHING Verified 10/02/17 15:29 ketorolac Allergy ITCHING Verified 10/02/17 15:29 ketorolac tromethamine Allergy RASH Verified 10/02/17 15:29 [From Toradol] Latex, Natural Rubber Allergy ITCHING Verified 10/02/17 15:29 morphine Allergy ITCHING Verified 10/02/17 15:29 orange juice Allergy ITCHING Verified 10/02/17 15:29 Penicillins Allergy ITCHING Verified 10/02/17 15:29 Sulfa (Sulfonamide Allergy RASH Verified 10/02/17 15:29 Antibiotics) tomato Allergy ITCHING Verified 10/02/17 15:29 tramadol Allergy ITCHING Verified 10/02/17 15:29 ondansetron HCl AdvReac Intermediate RASH Verified 10/02/17 15:29 [From Zofran (as hydrochloride)] Physical Exam - Constitutional Appears: No Acute Distress - Head Exam Head Exam: ATRAUMATIC, NORMOCEPHALIC - Eye Exam Eye Exam: EOMI - ENT Exam ENT Exam: Mucous Membranes Moist - Respiratory Exam Respiratory Exam: NORMAL BREATHING PATTERN - Cardiovascular Exam Cardiovascular Exam: REGULAR RHYTHM, +S1, +S2 - GI/Abdominal Exam GI & Abdominal Exam: Normal Bowel Sounds, Soft - Extremities Exam Extremities exam: Positive for: full ROM. Negative for: calf tenderness, pedal edema - Neurological Exam Neurological exam: Alert, CN II-XII Intact, Oriented x3 - Psychiatric Exam Psychiatric exam: Normal Affect, Normal Mood - Skin Skin Exam: Dry, Warm Results - Vital Signs Recent Vital Signs: Last Vital Signs Temp 98.3 F 10/03/17 11:55 Pulse 63 10/03/17 12:47 Resp 18 10/03/17 11:55 BP 174/88 H 10/03/17 12:47 Pulse Ox 98 10/03/17 11:55 - Labs Result Diagrams: 10/03/17 04:45 10/03/17 04:45 Labs: Laboratory Results - last 24 hr 10/02/17 10/02/17 10/02/17 17:36 19:52 19:52 WBC 5.3 RBC 4.17 Hgb 11.0 L D Hct 36.1 MCV 86.5 D MCH 26.5 L MCHC 30.6 L RDW 15.8 H Plt Count 232 MPV 8.5 Neut % (Auto) 61.5 Lymph % (Auto) 29.2 [place] % (Auto) 7.8 Eos % (Auto) 0.5 Baso % (Auto) 1.0 Neut # (Auto) 3.3 Lymph # (Auto) 1.5 [place] # (Auto) 0.4 Eos # (Auto) 0.0 Baso # (Auto) 0.1 Sodium 143 Potassium 2.9 L Chloride 104 Carbon Dioxide 31 H Anion Gap 11 BUN 19 H Creatinine 0.9 Est GFR ( Amer) > 60 Est GFR (Non-Af Amer) > 60 POC Glucose (mg/dL) Random Glucose 79 Calcium 11.4 H Total Bilirubin 0.6 AST 37 H ALT 31 Alkaline Phosphatase 58 Troponin I < 0.0120 NT-Pro-B Natriuret Pep 97.1 Total Protein 7.9 Albumin 4.2 Globulin 3.7 Albumin/Globulin Ratio 1.1 Urine Color Urine Clarity Urine pH Ur Specific [place] Urine Protein Urine Glucose (UA) Urine Ketones Urine Blood Urine Nitrate Urine Bilirubin Urine Urobilinogen Ur Leukocyte Esterase Urine RBC (Auto) Urine Microscopic WBC Ur Squamous Epith Cells Hyaline Casts Influenza Typ A,B (EIA) Negative for flu a/b 10/02/17 10/03/17 10/03/17 19:52 04:45 04:45 WBC 4.9 RBC 4.28 Hgb 11.6 L Hct 36.7 MCV 85.8 MCH 27.1 MCHC 31.6 L RDW 16.0 H Plt Count 231 MPV Neut % (Auto) Lymph % (Auto) [place] % (Auto) Eos % (Auto) Baso % (Auto) Neut # (Auto) Lymph # (Auto) [place] # (Auto) Eos # (Auto) Baso # (Auto) Sodium 144 Potassium 4.0 Chloride 107 Carbon Dioxide 27 Anion Gap 14 BUN 15 Creatinine 0.8 Est GFR ( Amer) > 60 Est GFR (Non-Af Amer) > 60 POC Glucose (mg/dL) Random Glucose 78 Calcium 11.1 H Total Bilirubin 0.7 AST 25 ALT 29 Alkaline Phosphatase 47 Troponin I 0.0180 NT-Pro-B Natriuret Pep Total Protein 6.8 Albumin 3.5 Globulin 3.3 Albumin/Globulin Ratio 1.1 Urine Color Cynthia Urine Clarity Cloudy Urine pH 5.0 Ur Specific [place] 1.023 Urine Protein 30 Urine Glucose (UA) Neg Urine Ketones Negative Urine Blood Negative Urine Nitrate Negative Urine Bilirubin Negative Urine Urobilinogen 0.2-1.0 Ur Leukocyte Esterase Neg Urine RBC (Auto) 3 Urine Microscopic WBC 4 Ur Squamous Epith Cells 2 Hyaline Casts 3-5 H Influenza Typ A,B (EIA) 10/03/17 06:04 WBC RBC Hgb Hct MCV MCH MCHC RDW Plt Count MPV Neut % (Auto) Lymph % (Auto) [place] % (Auto) Eos % (Auto) Baso % (Auto) Neut # (Auto) Lymph # (Auto) [place] # (Auto) Eos # (Auto) Baso # (Auto) Sodium Potassium Chloride Carbon Dioxide Anion Gap BUN Creatinine Est GFR ( Amer) Est GFR (Non-Af Amer) POC Glucose (mg/dL) 75 Random Glucose Calcium Total Bilirubin AST ALT Alkaline Phosphatase Troponin I NT-Pro-B Natriuret Pep Total Protein Albumin Globulin Albumin/Globulin Ratio Urine Color Urine Clarity Urine pH Ur Specific [place] Urine Protein Urine Glucose (UA) Urine Ketones Urine Blood Urine Nitrate Urine Bilirubin Urine Urobilinogen Ur Leukocyte Esterase Urine RBC (Auto) Urine Microscopic WBC Ur Squamous Epith Cells Hyaline Casts Influenza Typ A,B (EIA) Assessment & Plan - Assessment and Plan (Free Text) Assessment: 46 yo female admitted for left chest pain and left arm pain. Found to have hypokalemia. -admit to tele -followup with serial troponins, CBC, urine culture -supplement potassium -heart healthy diet, speech therapy -DVT prophylaxis with lovenox 40mg SC QD - Date & Time Date: 10/03/17 Time: 07:30 <Mane Fields - Last Filed: 10/09/17 14:20> Results - Vital Signs Recent Vital Signs: Last Vital Signs Temp 97.6 F 10/05/17 16:14 Pulse 65 10/05/17 16:14 Resp 16 10/05/17 16:14 BP 153/88 H 10/05/17 16:14 Pulse Ox 99 10/05/17 16:14 - Labs Result Diagrams: 10/05/17 05:10 10/05/17 05:10 Assessment & Plan - Assessment and Plan (Free Text) Assessment: Patient was personally seen and examined by me in rounds with residents. Available labs and diagnostic data reviewed. Case, Patient's condition and management plan discussed with residents in rounds. Agree with resident's documentation. Plan: As ordered. Maen Fields MD
--- NOTE | 2017-10-03 14:15 | PQF GENQUE ---
Dr. Fields, Medication: Duoneb IH Q15M-> Ventolin IH Q4H, Singulair, Diclofenac, Toprol, Neurontin, Norvasc, Pepcid etc. ordered please correlate all currently treated Diagnosis and add the dxs. to your progress note and the Status of the Diagnosis: i.e. Acute and or Chronic, in Exacerbation or Stable etc. ISigned H and P: PMHx. :CVA x 2, GISSELLE secondary to menorrhagia, HTN, CAD, anxiety , asthma, and speech impairment Hx Congestive Heart Failure: Yes Hx Multiple Sclerosis: Yes Hx Parkinson's Disease: Yes Hx Diabetes Mellitus Type 2: Yes Hx Hyperthyroidism: Yes Hx Anemia: Yes ; etc. see H and P in the EMR SurHx: umbilical hernia repair Assessment: 46 yo female admitted for left chest pain and left arm pain. Found to have hypokalemia. -admit to tele -followup with serial troponins, CBC , urine culture -supplement potassium -heart healthy diet, speech therapy - DVT prophylaxis with lovenox 40mg SC QD This form is a permanent part of the medical record Clarification of your documentation is requested to better reflect the severity of illness and intensity of treatment of your patient. Indicators present [] Specify: [] [] Specify: [] [] Specify: [] [] Specify: [] Location in the medical record that reflects the above clinical findings: [] Treatment Provided: [] PHYSICIAN'S RESPONSE Based on your medical judgment of the clinical indicators outlined above please clarify the following: [] Practitioner response [] If unable to determine, please check the box, sign and date. Present On Admission (POA) Indicator: [] Present at the time of admission [] Not present at the time of admission [] Clinically Undetermined In responding to this query, please exercise your independent professional judgment. The fact that a question is asked does not imply that any particular answer is desired or expected. Thank you for your clarification on this documentation. If you have any questions please call. * Thank you, Filomena Kevin RN ext. #[phone] MTDD
[2017-10-03] MEDS: Pantoprazole 40 mg EC Tab PO SCH (15:08)
[2017-10-04] MEDS: Albuterol HFA 90 mcg/actuation (8 g) IH SCH ×7 (02:52→22:00)
--- NOTE | 2017-10-04 08:27 | CP.PCM.PN ---
<Fuad Kimble - Last Filed: 10/04/17 08:30> Subjective - Date & Time of Evaluation Date of Evaluation: 10/04/17 Time of Evaluation: 08:00 - Subjective Subjective: - PAtient continues to complain of chest discomfort, is requesting to see cardiology. Troponins are not consistent with ACS. Patient otherwise is doing well slept well overnight with no other complaints. Hypokalemia has resolved, will consult cardiology. Objective - Vital Signs/Intake and Output Vital Signs (last 24 hours): Temp Pulse Resp BP Pulse Ox 97.9 F 64 20 159/85 H 98 10/04/17 08:05 10/04/17 08:05 10/04/17 08:05 10/04/17 08:05 10/04/17 08:05 - Medications Medications: Current Medications Albuterol (Ventolin Hfa 90 Mcg/Actuation (8 G)) 2 puff IH Q4H [facility] Last Admin: 10/04/17 06:34 Dose: 2 puff Amlodipine Besylate (Norvasc) 10 mg PO DAILY [facility] Last Admin: 10/03/17 09:40 Dose: 10 mg Atorvastatin Calcium (Lipitor) 20 mg PO DAILY [facility] Last Admin: 10/03/17 09:41 Dose: 20 mg Enoxaparin Sodium (Lovenox) 40 mg SC DAILY [facility] PRN Reason: Protocol Last Admin: 10/03/17 09:50 Dose: Not Given Famotidine (Pepcid) 20 mg PO DAILY [facility] Last Admin: 10/03/17 09:42 Dose: 20 mg Gabapentin (Neurontin) 300 mg PO TID [facility] Last Admin: 10/03/17 16:55 Dose: 300 mg Home Med (Diclofenac [Diclofenac]) 75 mg PO BID PRN PRN Reason: Pain, moderate (4-7) Ibuprofen (Motrin Tab) 600 mg PO BID [facility] Last Admin: 10/03/17 16:55 Dose: 600 mg Losartan Potassium (Cozaar) 50 mg PO DAILY [facility] Last Admin: 10/03/17 09:42 Dose: 50 mg Metoprolol Succinate (Toprol Xl) 25 mg PO DAILY [facility] Last Admin: 10/03/17 12:47 Dose: 25 mg Montelukast Sodium (Singulair) 10 mg PO DAILY [facility] Last Admin: 10/03/17 09:42 Dose: 10 mg Multivitamins/Minerals (Therapeutic-M Tab) 1 tab PO DAILY [facility] Last Admin: 10/03/17 09:39 Dose: 1 tab Pantoprazole Sodium (Protonix Ec Tab) 40 mg PO ACB [facility] Last Admin: 10/03/17 15:08 Dose: 40 mg - Labs Labs: 10/03/17 04:45 10/03/17 04:45 - Constitutional Appears: No Acute Distress - Head Exam Head Exam: NORMAL INSPECTION - Respiratory Exam Respiratory Exam: Clear to Ausculation Bilateral, NORMAL BREATHING PATTERN. absent: Rhonchi, Wheezes - Cardiovascular Exam Cardiovascular Exam: REGULAR RHYTHM - GI/Abdominal Exam GI & Abdominal Exam: Normal Bowel Sounds. absent: Tenderness - Extremities Exam Extremities Exam: Normal Capillary Refill. absent: Calf Tenderness Assessment and Plan - Assessment and Plan (Free Text) Assessment: 46 yo female admitted for left chest pain and left arm pain. Found to have hypokalemia. 1) Hypokalemia (resolved) -Continue with tele -K+ : 4.0 -heart healthy diet, speech therapy 2) Chest pain: - - Troponin < 0.012 x 2, .018 - Cardio consulted - Echo from 04/2017: Shows EF> 55% and no gross abnormalities 3) DVT prophylaxis with lovenox 40mg SC QD <Mane Fields - Last Filed: 10/09/17 14:22> Objective - Vital Signs/Intake and Output Vital Signs (last 24 hours): Temp Pulse Resp BP Pulse Ox 97.6 F 65 16 153/88 H 99 10/05/17 16:14 10/05/17 16:14 10/05/17 16:14 10/05/17 16:14 10/05/17 16:14 - Labs Labs: 10/05/17 05:10 10/05/17 05:10 Assessment and Plan - Assessment and Plan (Free Text) Assessment: Patient was personally seen and examined by me in rounds with residents. Available labs and diagnostic data reviewed. Case, Patient's condition and management plan discussed with residents in rounds. Agree with resident's documentation. Plan: As ordered. Mane Fields MD
--- NOTE | 2017-10-04 09:46 | CARD ---
APPROVED REPORT EKG Measurement Heart [id number] <Conclusion> Sinus rhythm with premature ventricular complexes or fusion complexes Moderate voltage criteria for LVH, may be normal variant Nonspecific ST and T wave abnormality Abnormal ECG
[2017-10-04] MEDS: Enoxaparin 40 mg Syringe SC SCH (10:38)
[2017-10-04] MEDS: Pantoprazole 40 mg EC Tab PO SCH (10:39)
[2017-10-04] MEDS: Multivitamin With Minerals Tab PO SCH (10:40)
[2017-10-04] MEDS: Metoprolol Succinate 25 mg XL Tab PO SCH (10:40)
--- NOTE | 2017-10-04 16:24 | CP.PCM.CON ---
History of Present Illness - History of Present Illness History of Present Illness: pt complaining of chest discomfort through out the entire ant chest, both shoulders and both arms. this is constant. unsure of the inciting or relieving factors. unsure of the duration. history limited by speech impediment. ekg shows lvh. old echo images reviewed and reveal lae, nml ef, mild lvh. Review of Systems - Review of Systems Systems not reviewed;Unavailable: Other Review of Systems: Aphasia Past Patient History - Infectious Disease Hx of Infectious Diseases: None - Tetanus Immunizations Tetanus Immunization: Unknown - Past Medical History & Family History Past Medical History?: Yes - Past Social History Smoking Status: Never Smoked Alcohol: None Drugs: Denies - CARDIAC Hx Cardiac Disorders: Yes Hx Congestive Heart Failure: Yes Hx Hypercholesterolemia: Yes Hx Hypotension: Yes - PULMONARY Hx Respiratory Disorders: Yes Hx Asthma: Yes Hx Chronic Obstructive Pulmonary Disease (COPD): Yes Hx Pneumonia: Yes - NEUROLOGICAL Hx Neurological Disorder: Yes Hx Multiple Sclerosis: Yes Hx Parkinson's Disease: Yes Hx Transient Ischemic Attacks (TIA): Yes - HEENT Hx HEENT Problems: No - RENAL Hx Chronic Kidney Disease: Yes Hx Kidney Stones: Yes - ENDOCRINE/METABOLIC Hx Endocrine Disorders: Yes Hx Diabetes Mellitus Type 2: Yes Hx Hyperthyroidism: Yes - HEMATOLOGICAL/ONCOLOGICAL Hx Blood Disorders: Yes Hx AIDS: No Hx Anemia: Yes Hx Human Immunodeficiency Virus (HIV): No - INTEGUMENTARY Hx Dermatological Problems: No - MUSCULOSKELETAL/RHEUMATOLOGICAL Hx Musculoskeletal Disorders: Yes Hx Arthritis: Yes Hx Back Pain: Yes Hx Falls: Yes Hx Osteoarthritis: Yes - GASTROINTESTINAL Hx Gastrointestinal Disorders: Yes Hx Gastritis: Yes Hx Gastroesophageal Reflux: Yes - GENITOURINARY/GYNECOLOGICAL Hx Genitourinary Disorders: No - PSYCHIATRIC Hx Psychophysiologic Disorder: Yes Hx Depression: Yes Hx Substance Use: No - SURGICAL HISTORY Hx Surgeries: Yes Hx Herniorrhaphy: Yes - ANESTHESIA Hx Anesthesia: Yes Hx Anesthesia Reactions: No Hx Malignant Hyperthermia: No Meds Allergies/Adverse Reactions: Allergies Allergy/AdvReac Type Severity Reaction Status Date / Time acetaminophen Allergy ITCHING Verified 10/02/17 15:29 codeine Allergy RASH Verified 10/02/17 15:29 iodine Allergy ITCHING Verified 10/02/17 15:29 ketorolac Allergy ITCHING Verified 10/02/17 15:29 ketorolac tromethamine Allergy RASH Verified 10/02/17 15:29 [From Toradol] Latex, Natural Rubber Allergy ITCHING Verified 10/02/17 15:29 morphine Allergy ITCHING Verified 10/02/17 15:29 orange juice Allergy ITCHING Verified 10/02/17 15:29 Penicillins Allergy ITCHING Verified 10/02/17 15:29 Sulfa (Sulfonamide Allergy RASH Verified 10/02/17 15:29 Antibiotics) tomato Allergy ITCHING Verified 10/02/17 15:29 tramadol Allergy ITCHING Verified 10/02/17 15:29 ondansetron HCl AdvReac Intermediate RASH Verified 10/02/17 15:29 [From Zofran (as hydrochloride)] - Medications Medications: Current Medications Albuterol (Ventolin Hfa 90 Mcg/Actuation (8 G)) 2 puff IH Q4H [facility] Last Admin: 10/04/17 10:40 Dose: 2 puff Amlodipine Besylate (Norvasc) 10 mg PO DAILY [facility] Last Admin: 10/04/17 10:39 Dose: 10 mg Atorvastatin Calcium (Lipitor) 20 mg PO DAILY [facility] Last Admin: 10/04/17 10:39 Dose: 20 mg Enoxaparin Sodium (Lovenox) 40 mg SC DAILY [facility] PRN Reason: Protocol Last Admin: 10/04/17 10:38 Dose: Not Given Famotidine (Pepcid) 20 mg PO DAILY [facility] Last Admin: 10/04/17 10:37 Dose: 20 mg Gabapentin (Neurontin) 300 mg PO TID [facility] Last Admin: 10/04/17 12:15 Dose: 300 mg Home Med (Diclofenac [Diclofenac]) 75 mg PO BID PRN PRN Reason: Pain, moderate (4-7) Ibuprofen (Motrin Tab) 600 mg PO BID [facility] Last Admin: 10/04/17 10:39 Dose: 600 mg Losartan Potassium (Cozaar) 50 mg PO DAILY [facility] Last Admin: 10/04/17 10:38 Dose: 50 mg Metoprolol Succinate (Toprol Xl) 25 mg PO DAILY [facility] Last Admin: 10/04/17 10:40 Dose: 25 mg Montelukast Sodium (Singulair) 10 mg PO DAILY [facility] Last Admin: 10/04/17 10:39 Dose: 10 mg Multivitamins/Minerals (Therapeutic-M Tab) 1 tab PO DAILY [facility] Last Admin: 10/04/17 10:40 Dose: 1 tab Pantoprazole Sodium (Protonix Ec Tab) 40 mg PO ACB [facility] Last Admin: 10/04/17 10:39 Dose: 40 mg Physical Exam - Constitutional Appears: Non-toxic - Head Exam Head Exam: ATRAUMATIC, NORMAL INSPECTION, NORMOCEPHALIC - Eye Exam Eye Exam: EOMI, Normal appearance, PERRL. absent: Conjunctival injection, Nystagmus, Periorbital swelling, Periorbital tenderness, Scleral icterus Pupil Exam: NORMAL ACCOMODATION, PERRL. absent: Fixed, Irregular, Miosis, Mydriatic, Unequal - ENT Exam ENT Exam: Mucous Membranes Moist, Normal Exam. absent: Mucous Membranes Dry, Normal External Ear Exam, Normal Oropharynx, TM's Normal Bilaterally - Neck Exam Neck exam: Positive for: Normal Inspection. Negative for: Full Rom, Lymphadenopathy, Meningismus, Tenderness, Thyromegaly - Respiratory Exam Respiratory Exam: Wheezes, NORMAL BREATHING PATTERN. absent: Accessory Muscle Use, Chest Wall Tenderness, Decreased Breath Sounds, Clear to Auscultation Bilateral, Prolonged Expiratory Phase, Rales, Rhonchi, Respiratory Distress, Stridor - Cardiovascular Exam Cardiovascular Exam: Bradycardia, +S1, +S2, Systolic Murmur. absent: Tachycardia, Clicks, Diastolic murmur, Gallop, Irregular Rhythm, REGULAR RHYTHM , JVD, RRR, Rubs, +S4 - GI/Abdominal Exam GI & Abdominal Exam: Normal Bowel Sounds, Soft. absent: Bruit, Diminished Bowel Sounds, Distended, Firm, Guarding, Hernia, Hyperactive Bowel Sounds, Hypoactive Bowel Sounds, Mass, Organomegaly, Pulsatile Mass, Rebound, Rigid, Tenderness - Rectal Exam Rectal Exam: Deferred - Extremities Exam Extremities exam: Positive for: normal inspection. Negative for: calf tenderness, full ROM, joint swelling, normal capillary refill, pedal edema, tenderness, pedal pulses present - Back Exam Back exam: NORMAL INSPECTION. absent: CVA tenderness (L), CVA tenderness (R), FULL ROM, muscle spasm, paraspinal tenderness, rash noted, tenderness, vertebral tenderness - Neurological Exam Neurological exam: Alert, CN II-XII Intact, Oriented x3, Reflexes Normal - Psychiatric Exam Psychiatric exam: Normal Affect, Normal Mood - Skin Skin Exam: Dry, Intact, Normal Color, Warm Results - Vital Signs Recent Vital Signs: Last Vital Signs Temp 98.1 F 10/04/17 16:12 Pulse 53 L 10/04/17 16:12 Resp 16 10/04/17 16:12 BP 114/62 10/04/17 16:12 Pulse Ox 100 10/04/17 16:12 - Labs Result Diagrams: 10/03/17 04:45 10/03/17 04:45 Labs: Laboratory Results - last 24 hr 10/03/17 10/03/17 10/04/17 11:09 21:31 10:53 POC Glucose (mg/dL) 75 71 92 - EKG Data EKG Interpreted by: Myself EKG shows normal: Sinus rhythm - EKG Data EKG comments: lvh Assessment & Plan (1) Chest pain Status: Acute (2) Bradycardia Status: Acute (3) LVH (left ventricular hypertrophy) Status: Acute (4) Hypertension Status: Acute (5) Multiple sclerosis Status: Chronic Priority: Medium - Assessment and Plan (Free Text) Plan: chest pain appears atypical and noncardiac. trop neg x 2. ekg unchanged from prior. will repeat echo to eval lvef. increase losartan given htn. check vit d and esr. also check cpk given statin. monitor lytes. 55 min total care time. thank you.
[2017-10-05] MEDS: Albuterol HFA 90 mcg/actuation (8 g) IH SCH ×4 (03:00→15:00)
[2017-10-05 06:06] LABS: HEMOGLOBIN 10.9 g/dL (12.0-16.0); MEAN CELL VOLUME 86.3 fl (81.0-99.0); MEAN CORPUSCULAR HEMOGLOBIN 27.6 pg (27.0-31.0); MEAN CORPUSCULAR HGB CONC 31.9 g/dL (33.0-37.0); RBC 3.97 Mil/uL (3.80-5.20); RED CELL DISTRIBUTION WIDTH 15.7 % (11.5-14.5); WHITE BLOOD COUNT 3.2 K/uL (4.8-10.8)
[2017-10-05 06:13] LABS: BLOOD UREA NITROGEN 18 mg/dl (7-17); CALCIUM 11.2 mg/dL (8.4-10.2); GFR AFRICAN-AMERICAN > 60; GFR NON-AFRICAN AMERICAN > 60; HDL CHOLESTEROL 53 MG/DL (30-70); MAGNESIUM 1.9 MG/DL (1.6-2.3)
[2017-10-05 06:22] LABS: FREE T4 1.07 ng/dL (0.78-2.19)
[2017-10-05 06:23] LABS: LDL CHOLESTEROL 52 mg/dL (0-129)
[2017-10-05 06:36] LABS: T3 1.98 nmol/L (1.49-2.60)
[2017-10-05] MEDS: Pantoprazole 40 mg EC Tab PO SCH (06:48)
--- NOTE | 2017-10-05 08:27 | PN ---
DATE: 10/05/2017 SUBJECTIVE: The patient is seen and examined. Interim event is noted. Consults noted and appreciated. Cardiology followup and intervention noted and appreciated. The patient complains of arthritic pain. No back pain, chest pain or shortness of breath. PHYSICAL EXAMINATION: GENERAL: The patient is in no acute distress. VITAL SIGNS: Stable. HEART: S1 and S2 normal and regular. LUNGS: Good bilateral air exchange. GASTROINTESTINAL: Abdomen is soft and nontender. EXTREMITIES: No edema and no calf swelling. No tenderness. No acute ischemia. CENTRAL NERVOUS SYSTEM: Exam is essentially unchanged. The patient is dysarthric and . DIAGNOSTIC DATA: Available diagnostic data reviewed. Telemetry monitoring does not show significant arrhythmias. IMPRESSION AND PLAN: Overall, the patient's general medical condition is stable. Plan as ordered. Mane Fields MD
[2017-10-05] MEDS: Metoprolol Succinate 25 mg XL Tab PO SCH (09:13)
[2017-10-05] MEDS: Multivitamin With Minerals Tab PO SCH (09:13)
[2017-10-05] MEDS: Enoxaparin 40 mg Syringe SC SCH (09:15)
--- NOTE | 2017-10-05 13:04 | CARD ---
APPROVED REPORT EXAM: Two-dimensional and M-mode echocardiogram with Doppler and color Doppler. Other Information Quality : AverageRhythm : NSR INDICATION Chest Pain 2D DIMENSIONS IVSd1.44 (0.7-1.1cm)LVDd4.46 (3.9-5.9cm) LVOT Diameter2.33 (1.8-2.4cm)PWd1.11 (0.7-1.1cm) IVSs1.96 (0.8-1.2cm)LVDs2.84 (2.5-4.0cm) FS (%) 36.4 %PWs1.65 (0.8-1.2cm) M-Mode DIMENSIONS Left Atrium (MM)2.14 (2.5-4.0cm)IVSd1.03 (0.7-1.1cm) Aortic Root3.37 (2.2-3.7cm)LVDd5.38 (4.0-5.6cm) Aortic Cusp Exc.2.37 (1.5-2.0cm)PWd0.88 (0.7-1.1cm) IVSs1.42 cmFS (%) 48 % LVDs2.78 (2.0-3.8cm)PWs1.78 cm Mitral Valve MV E Dmvinbpf58.5cm/sMV DECEL [id number] A Afxugxwf60.7cm/s MV VEW20tbI/A ratio1.0MVA (PHT)3.49cm2 TDI E/Lateral E'0.0E/Medial E'0.0 Pulmonary Valve PV Peak Dotdubxs927.1cm/s Tricuspid Valve TR Peak Qftfzkok446sa/sRAP QIXCBVVY96agTpXV Peak Gr.18mmHg TSPF23jrQa LEFT VENTRICLE The left ventricle is normal size. There is normal left ventricular wall thickness. Left ventricle systolic function is normal. The Ejection Fraction is 65-70%. There is normal LV segmental wall motion. Transmitral Doppler flow pattern is Grade I-abnormal relaxation pattern. RIGHT VENTRICLE The right ventricle is normal size. There is normal right ventricular wall thickness. The right ventricular systolic function is normal. ATRIA The left atrium size is normal. The right atrium size is normal. AORTIC VALVE The aortic valve is normal in structure. No aortic regurgitation is present. There is no aortic valvular stenosis. MITRAL VALVE The mitral valve is normal in structure. There is no evidence of mitral valve prolapse. There is no mitral valve stenosis. Mitral regurgitation is trace. TRICUSPID VALVE The tricuspid valve is normal in structure. There is mild tricuspid regurgitation. Right ventricular systolic pressure is estimated at 19 mmHg. There is no pulmonary hypertension. PULMONIC VALVE The pulmonary valve is normal in structure. There is no pulmonic valvular regurgitation. GREAT VESSELS The aortic root is normal in size. Due to poor image quality, the IVC could not be assessed. PERICARDIAL EFFUSION The pericardium appears normal. <Conclusion> The left ventricle is normal size. There is normal left ventricular wall thickness. There is normal LV segmental wall motion. Left ventricle systolic function is normal. The Ejection Fraction is 65-70%. Transmitral Doppler flow pattern is Grade I-abnormal relaxation pattern.
[2017-10-05 16:15] VITALS: BP 153/88; PULSE 65; RESP 16; TEMP 97.6; O2SAT 99
[2017-10-05] MEDS ORDERED: DICLOFENAC 75 MG PO PRN (21:59)
== END 2017-10-05 18:00 | DRG 143 ==
LOC: H.ER 14:23 → H.ERHOLD 21:53 → H.TEL 10-03 00:30 → UNDODISIN 10-05 18:06
PROVIDERS: ADMIT Internal Medicine; ATTEND Internal Medicine
DX: R07.89 Other chest pain (principal); I25.10 Atherosclerotic heart disease of native coronary artery without angina pectoris; E11.22 Type 2 diabetes mellitus with diabetic chronic kidney disease; I13.0 Hypertensive heart and chronic kidney disease with heart failure and stage 1 through stage 4 chronic kidney disease, or unspecified chronic kidney disease; G20 Parkinson's disease; I50.9 Heart failure, unspecified; I95.9 Hypotension, unspecified; G35 Multiple sclerosis; J45.901 Unspecified asthma with (acute) exacerbation; E87.6 Hypokalemia; J44.9 Chronic obstructive pulmonary disease, unspecified; N18.9 Chronic kidney disease, unspecified; E05.90 Thyrotoxicosis, unspecified without thyrotoxic crisis or storm; K21.9 Gastro-esophageal reflux disease without esophagitis; Z79.899 Other long term (current) drug therapy; Z86.73 Personal history of transient ischemic attack (TIA), and cerebral infarction without residual deficits; Z87.01 Personal history of pneumonia (recurrent); E78.5 Hyperlipidemia, unspecified; Z87.11 Personal history of peptic ulcer disease; Z87.442 Personal history of urinary calculi; D64.9 Anemia, unspecified; F32.9 Major depressive disorder, single episode, unspecified; F41.9 Anxiety disorder, unspecified; F45.9 Somatoform disorder, unspecified; K29.70 Gastritis, unspecified, without bleeding; M19.90 Unspecified osteoarthritis, unspecified site; J02.9 Acute pharyngitis, unspecified; M54.9 Dorsalgia, unspecified; E78.00 Pure hypercholesterolemia, unspecified

== ENCOUNTER 2018-05-05 21:22 | Emergency (ER) | payer MEDICAID ==
[2018-05-05 21:22] VITALS: BMI 24.5
[2018-05-05 21:29] VITALS: BP 126/88; PULSE 77; RESP 19; TEMP 98.9; O2SAT 98
--- NOTE | 2018-05-05 22:01 | ED PDOC ---
HPI: Chest Pain Time Seen by Provider: 05/05/18 21:23 Chief Complaint (Nursing): Chest Pain Chief Complaint (Provider): chest pain History Per: Patient Onset/Duration Of Symptoms: Days (2 weeks), Waxing/Waning Current Symptoms Are (Timing): Still Present Quality: Pressure, "Pain" Associated Symptoms: Dyspnea Additional Complaint(s): 47 y/o female with a PMHx of cerebral palssy, chronic pain, HTN , asthma, CVA and developmental delay presents to the ED complaining of intermittent chest pain, onset two days. Patient is well known to the hospital system for frequent visit for the same issue. Patient was seen 4 times in the month of April for this chest pain including an admission on 04/14/2018. When asked about other visits to other hospitals, patient reports they weren't her. Patient also complains of shortness of breath secondary to Asthma and swelling in her knees. History is somewhat disjointed secondary to patient's chronic medical condition. PMD: Casey Soliman Past Medical History Reviewed: Historical Data, Nursing Documentation, Vital Signs Vital Signs: Last Vital Signs Temp 98.9 F 05/05/18 21:25 Pulse 77 05/05/18 21:25 Resp 19 05/05/18 21:25 BP 126/88 05/05/18 21:25 Pulse Ox 98 05/05/18 22:23 - Medical History PMH: Anemia, Anxiety, Arthritis, Asthma, Bronchitis, CAD, CHF, COPD, CVA, Depression, Diabetes, Gastritis, Gastrointestinal Ulcer, HTN, Hypercholesterolemia, Hyperlipidemia, Hyperthyroidism, Kidney Stones, Multiple Sclerosis, Parkinson's Disease, Pneumonia, Chronic Kidney Disease, TIA, Chronic Pain Denies: Benign Prostatic Hyperplasia, HIV Other PMH: Cerebral Palsy and Chronic Movement Disorder - Surgical History Surgical History: Hernia Repair (Umbilical hernia repair) - Family History Family History: States: Unknown Family Hx - Immunization History Hx Tetanus Toxoid Vaccination: No Hx Influenza Vaccination: Yes Hx Pneumococcal Vaccination: Yes - Home Medications Home Medications: Ambulatory Orders Medication Instructions Recorded Albuterol HFA [Ventolin HFA 90 2 puff IH Q4H #1 puff 09/16/17 mcg/actuation (8 g)] amLODIPine [Norvasc] 10 mg PO DAILY 10/02/17 Metoprolol Succinate XL [Toprol XL] 25 mg PO DAILY #30 tab 12/26/17 Pantoprazole Sodium [Protonix] 40 mg PO DAILY #30 tablet.dr 12/26/17 Albuterol Sulfate [Proventil] 2 mg PO BID 03/27/18 Cetirizine HCl [Zyrtec] 10 mg PO DAILY 03/27/18 Famotidine [Pepcid] 40 mg PO DAILY 03/27/18 Gabapentin 300 mg PO TID 03/27/18 Losartan [Cozaar] 100 mg PO DAILY #30 tab 03/30/18 Montelukast [Singulair] 10 mg PO DAILY #30 tab 03/30/18 Multivitamin [Multi-Vitamin Daily] 1 each PO DAILY 999 Days tablet 03/30/18 Nitroglycerin 0.4 mg SL Q5MIN PRN #15 tab.subl 03/30/18 Azithromycin [Z-Darren] 250 mg PO DAILY #6 tab 04/15/18 Albuterol HFA [Ventolin HFA 90 2 puff IH Q4 #1 puff 04/27/18 mcg/actuation (8 g)] predniSONE [predniSONE Tab] 40 mg PO DAILY #8 tab 04/27/18 - Allergies Allergies/Adverse Reactions: Allergies Allergy/AdvReac Type Severity Reaction Status Date / Time acetaminophen Allergy ITCHING Verified 05/05/18 21:29 codeine Allergy RASH Verified 05/05/18 21:29 iodine Allergy ITCHING Verified 05/05/18 21:29 ketorolac Allergy ITCHING Verified 05/05/18 21:29 ketorolac tromethamine Allergy RASH Verified 05/05/18 21:29 [From Toradol] Latex, Natural Rubber Allergy ITCHING Verified 05/05/18 21:29 morphine Allergy ITCHING Verified 05/05/18 21:29 orange juice Allergy ITCHING Verified 05/05/18 21:29 Penicillins Allergy ITCHING Verified 05/05/18 21:29 Sulfa (Sulfonamide Allergy RASH Verified 05/05/18 21:29 Antibiotics) tomato Allergy ITCHING Verified 05/02/18 11:26 tramadol Allergy ITCHING Verified 05/02/18 11:26 ondansetron HCl AdvReac Intermediate RASH Verified 05/02/18 11:26 [From Zofran (as hydrochloride)] Review of Systems ROS Statement: Except As Marked, All Systems Reviewed And Found Negative ( Somewhat limited secondary to clinical conditon) Cardiovascular: Positive for: Chest Pain Respiratory: Positive for: Shortness of Breath Musculoskeletal: Positive for: Arm Pain, Back Pain, Leg Pain (knee) Neurological: Positive for: Dizziness Physical Exam - Reviewed Nursing Documentation Reviewed: Yes Vital Signs Reviewed: Yes - Physical Exam Appears: Positive for: No Acute Distress (On arrival to patient's room, patient appeared to be in no acute distress and sleeping.) Head Exam: Positive for: ATRAUMATIC, NORMOCEPHALIC Skin: Positive for: Warm, Dry Eye Exam: Positive for: EOMI, PERRL Neck: Positive for: Painless ROM, Supple Cardiovascular/Chest: Positive for: Regular Rate, Rhythm. Negative for: Murmur Respiratory: Positive for: Normal Breath Sounds. Negative for: Respiratory Distress Gastrointestinal/Abdominal: Positive for: Soft. Negative for: Tenderness Back: Positive for: Normal Inspection. Negative for: Decreased ROM Extremity: Positive for: Normal ROM (Full ROM at the knee), Swelling (Bilateral edema in the knee joint) Neurologic/Psych: Positive for: Alert, Other (Dystonic movement, lip smacking consistent with movement disorder). Negative for: Motor/Sensory Deficits - ECG O2 Sat by Pulse Oximetry: 98 (RA) Pulse Ox Interpretation: Normal Medical Decision Making Medical Decision Making: Time: 2158 Impression: Chest Pain Plan: -- EKG -- Appears all chronic medical conditions are stable. Patient instructed to follow up with PMD, Dr. Casey Soliman. -- Patient is stable for discharge. Scribe Attestation: Documented by Jared Clement acting as a scribe for Araceli Muse MD. Provider Scribe Attestation: All medical record entries made by the Scribe were at my direction and personally dictated by me. I have reviewed the chart and agree that the record accurately reflects my personal performance of the history, physical exam, medical decision making, and the department course for this patient. I have also personally directed, reviewed, and agree with the discharge instructions and disposition. Disposition - Clinical Impression Clinical Impression: Chronic pain disorder, Chest pain - Disposition Referrals: Jordi Soliman MD [Staff Provider] - 05/07/18 Disposition: Routine/Home Disposition Time: 21:59 Condition: STABLE Instructions: Chest Pain (DC)
--- NOTE | 2018-05-06 09:57 | CARD ---
APPROVED REPORT Date of service: 05/05/2018 EKG Measurement Heart [id number] <Conclusion> Normal sinus rhythm Baseline artifact Nonspecific ST and T wave abnormality Abnormal ECG
== END 2018-05-06 00:06 | disposition home or self-care (01) ==
LOC: H.ER 21:22
DX: R07.89 Other chest pain (principal); G89.29 Other chronic pain; G80.9 Cerebral palsy, unspecified; G35 Multiple sclerosis; E05.90 Thyrotoxicosis, unspecified without thyrotoxic crisis or storm; E78.00 Pure hypercholesterolemia, unspecified; G20 Parkinson's disease; I13.0 Hypertensive heart and chronic kidney disease with heart failure and stage 1 through stage 4 chronic kidney disease, or unspecified chronic kidney disease; Z86.73 Personal history of transient ischemic attack (TIA), and cerebral infarction without residual deficits; Z88.0 Allergy status to penicillin

== ENCOUNTER 2018-05-29 11:51 | Emergency (ER) | payer MEDICAID ==
[2018-05-29 11:55] VITALS: BMI 22.3
--- NOTE | 2018-05-29 12:15 | ED PDOC ---
HPI: CCC, URI, Sore Throat Time Seen by Provider: 05/29/18 12:04 History Per: Patient (Benny is here because of 2 days of cough and shortness of breath. Patient states that she her sputum is more yelllow. She has not vomited and has not had fever or chills. She complains of knee swelling.) Past Medical History Reviewed: Historical Data, Nursing Documentation, Vital Signs Vital Signs: Last Vital Signs Temp 98.8 F 05/29/18 11:55 Pulse 94 H 05/29/18 11:55 Resp 17 05/29/18 11:55 BP 114/68 05/29/18 11:55 Pulse Ox 97 05/29/18 11:55 - Medical History PMH: Anemia, Anxiety, Arthritis, Asthma, Bronchitis, CAD, CHF, COPD, CVA, Depression, Diabetes, Gastritis, Gastrointestinal Ulcer, HTN, Hypercholesterolemia, Hyperlipidemia, Hyperthyroidism, Kidney Stones, Multiple Sclerosis, Parkinson's Disease, Pneumonia, Chronic Kidney Disease, TIA, Chronic Pain Denies: Benign Prostatic Hyperplasia, HIV - Surgical History Surgical History: Hernia Repair (Umbilical hernia repair), (1994) - Family History Family History: States: Unknown Family Hx - Immunization History Hx Tetanus Toxoid Vaccination: No Hx Influenza Vaccination: Yes Hx Pneumococcal Vaccination: Yes - Home Medications Home Medications: Ambulatory Orders Medication Instructions Recorded amLODIPine [Norvasc] 10 mg PO DAILY 10/02/17 Metoprolol Succinate XL [Toprol XL] 25 mg PO DAILY #30 tab 12/26/17 Pantoprazole Sodium [Protonix] 40 mg PO DAILY #30 tablet 12/26/17 Cetirizine HCl [Zyrtec] 10 mg PO DAILY 03/27/18 Gabapentin 300 mg PO TID 03/27/18 Losartan [Cozaar] 100 mg PO DAILY #30 tab 03/30/18 Montelukast [Singulair] 10 mg PO DAILY #30 tab 03/30/18 Multivitamin [Multi-Vitamin Daily] 1 each PO DAILY 999 Days tablet 03/30/18 predniSONE [predniSONE Tab] 40 mg PO DAILY #8 tab 04/27/18 Sulfamethoxazole/Trimethoprim 1 tab PO BID #14 tab 05/29/18 [Bactrim DS 800 mg-160 mg] - Allergies Allergies/Adverse Reactions: Allergies Allergy/AdvReac Type Severity Reaction Status Date / Time acetaminophen Allergy ITCHING Verified 05/27/18 11:49 codeine Allergy RASH Verified 05/27/18 11:49 iodine Allergy ITCHING Verified 05/27/18 11:49 ketorolac Allergy ITCHING Verified 05/27/18 11:49 ketorolac tromethamine Allergy RASH Verified 05/27/18 11:49 [From Toradol] Latex, Natural Rubber Allergy ITCHING Verified 05/27/18 11:49 morphine Allergy ITCHING Verified 05/27/18 11:49 orange juice Allergy ITCHING Verified 05/27/18 11:49 Penicillins Allergy ITCHING Verified 05/27/18 11:49 Sulfa (Sulfonamide Allergy RASH Verified 05/27/18 11:49 Antibiotics) tomato Allergy ITCHING Verified 05/27/18 11:49 tramadol Allergy ITCHING Verified 05/27/18 11:49 ondansetron HCl AdvReac Intermediate RASH Verified 05/27/18 11:49 [From Zofran (as hydrochloride)] Review of Systems ROS Statement: Except As Marked, All Systems Reviewed And Found Negative Constitutional: Negative for: Fever, Chills Respiratory: Positive for: Cough, Shortness of Breath. Negative for: SOB with Exertion Gastrointestinal: Negative for: Nausea, Vomiting, Diarrhea Physical Exam - Reviewed Nursing Documentation Reviewed: Yes Vital Signs Reviewed: Yes - Physical Exam Appears: Positive for: Well, Non-toxic, No Acute Distress Head Exam: Positive for: ATRAUMATIC, NORMAL INSPECTION, NORMOCEPHALIC Skin: Positive for: Normal Color, Warm, DRY Eye Exam: Positive for: Normal appearance, EOMI ENT: Positive for: Normal ENT Inspection Neck: Positive for: Normal Cardiovascular/Chest: Positive for: Regular Rate, Rhythm Respiratory: Positive for: CNT, Normal Breath Sounds Gastrointestinal/Abdominal: Positive for: Normal Exam, Soft Back: Positive for: Normal Inspection Extremity: Positive for: Normal ROM Neurologic/Psych: Positive for: Alert, Oriented - Laboratory Results Result Diagrams: 05/29/18 12:44 05/29/18 12:44 - ECG O2 Sat by Pulse Oximetry: 97 Disposition - Clinical Impression Clinical Impression: Cough, Bronchitis - Patient ED Disposition Is Patient to be Admitted: No Doctor Will See Patient In The: Office Counseled Patient/Family Regarding: Diagnosis, Need For Followup, Rx Given - Disposition Disposition: Routine/Home Disposition Time: 14:05 Condition: STABLE Prescriptions: Sulfamethoxazole/Trimethoprim [Bactrim DS 800 mg-160 mg] 1 tab PO BID #14 tab Instructions: Acute Bronchitis Forms: [facility] (Georgian) - POA Present On Arrival: None
--- NOTE | 2018-05-29 12:36 | RAD ---
Date of service: 05/29/2018 HISTORY: cough with yellow sputum COMPARISON: Chest radiograph dated 10/02/2017. FINDINGS: LUNGS: Pulmonary vascular congestion. No focal consolidation. PLEURA: No significant pleural effusion identified, no pneumothorax apparent. CARDIOVASCULAR: Atherosclerotic aortic calcifications. Cardiomediastinal silhouette stably enlarged with stable widened upper mediastinum. OSSEOUS STRUCTURES: Unchanged VISUALIZED UPPER ABDOMEN: Normal. OTHER FINDINGS: None. IMPRESSION: Pulmonary vascular congestion. No focal consolidation or pleural effusion. Stable appearance of widened upper mediastinum. If this has not previously been evaluated with contrast-enhanced CT scan, this is suggested to evaluate for possible aneurysmal dilatation.
[2018-05-29 13:00] LABS: VENOUS BLOOD GAS BASE EXCESS 7.8 mmol/L (0.0-2.0); VENOUS BLOOD GAS PCO2 59 mmHg (40-60); VENOUS BLOOD GAS PO2 22 mm/Hg (30-55); VENOUS BLOOD PH 7.38 (7.32-7.43)
[2018-05-29 13:03] LABS: ALBUMIN 3.8 g/dL (3.5-5.0); ALT/SGPT 32 U/L (9-52); AST/SGOT 33 U/L (14-36); BLOOD UREA NITROGEN 14 mg/dl (7-17); CALCIUM 11.7 mg/dL (8.4-10.2); GFR NON-AFRICAN AMERICAN > 60
[2018-05-29 13:13] LABS: BASO % 0.7 % (0.0-2.0); EOS # 0.1 K/uL (0.0-0.7); EOS % 1.3 % (0.0-4.0); HEMOGLOBIN 11.2 g/dL (12.0-16.0); LYMPH # 1.4 K/uL (1.0-4.3); LYMPH % 34.5 % (20.0-40.0); MEAN CELL VOLUME 86.3 fl (81.0-99.0); MEAN CORPUSCULAR HEMOGLOBIN 27.8 pg (27.0-31.0); MEAN CORPUSCULAR HGB CONC 32.2 g/dL (33.0-37.0); MEAN PLATELET VOLUME 9.1 fl (7.2-11.7); MONO # 0.4 K/uL (0.0-0.8); MONO % 9.6 % (0.0-10.0); NEUT # 2.2 K/uL (1.8-7.0); NEUT % 53.9 % (50.0-75.0); RBC 4.02 Mil/uL (3.80-5.20); RED CELL DISTRIBUTION WIDTH 14.5 % (11.5-14.5); WHITE BLOOD COUNT 4.1 K/uL (4.8-10.8)
[2018-05-29 18:19] VITALS: PULSE 77; RESP 18
[2018-05-29 18:20] VITALS: BP 119/70; TEMP 97.9; O2SAT 100
== END 2018-05-29 18:19 | disposition home or self-care (01) ==
LOC: H.ER 11:51
DX: J40 Bronchitis, not specified as acute or chronic (principal); R05 Cough

== ENCOUNTER 2018-06-14 15:08 | Emergency (ER) | payer MEDICAID ==
[2018-06-14 15:08] VITALS: BMI 22.3
[2018-06-14 15:15] VITALS: TEMP 98.4
--- NOTE | 2018-06-14 15:38 | ED PDOC ---
HPI: General Adult Time Seen by Provider: 06/14/18 15:31 Chief Complaint (Nursing): Dizziness/Lightheaded Chief Complaint (Provider): diarrhea, dizziness History Per: Patient Additional Complaint(s): 47-year-old female with history of CP and MS presents with generalized dizziness as well as watery, nonbloody diarrhea for 2 days. Patient also complains of chest pain and left arm pain. Patient is well-known to emergency room for frequent visits and also has frequent visits at [facility] and [facility]. Patient's was recently admitted for several days at [facility] and discharged 2 days ago. Patient was seen yesterday at [facility] and discharged and she presents today with similar symptoms. Past Medical History Reviewed: Historical Data, Nursing Documentation, Vital Signs Vital Signs: Last Vital Signs Temp 98.4 F 06/14/18 15:13 Pulse 79 06/14/18 15:13 Resp 18 06/14/18 15:13 BP 119/63 06/14/18 15:13 Pulse Ox 100 06/14/18 15:13 - Medical History PMH: Anemia, Anxiety, Arthritis, Asthma, Bronchitis, CAD, CHF, COPD, CVA, Depression, Diabetes, Gastritis, Gastrointestinal Ulcer, HTN, Hypercholesterolemia, Hyperlipidemia, Hyperthyroidism, Kidney Stones, Multiple Sclerosis, Parkinson's Disease, Pneumonia, Chronic Kidney Disease, TIA, Chronic Pain - Surgical History Surgical History: Hernia Repair (Umbilical hernia repair), (1994) - Family History Family History: States: No Known Family Hx - Living Arrangements Living Arrangements: With Family - Social History Current smoker - smoking cessation education provided: No Alcohol: None Drugs: Denies - Home Medications Home Medications: Ambulatory Orders Medication Instructions Recorded amLODIPine [Norvasc] 10 mg PO DAILY 10/02/17 Metoprolol Succinate XL [Toprol XL] 25 mg PO DAILY #30 tab 12/26/17 Pantoprazole Sodium [Protonix] 40 mg PO DAILY #30 tablet 12/26/17 Cetirizine HCl [Zyrtec] 10 mg PO DAILY 03/27/18 Gabapentin 300 mg PO TID 03/27/18 Losartan [Cozaar] 100 mg PO DAILY #30 tab 03/30/18 Montelukast [Singulair] 10 mg PO DAILY #30 tab 03/30/18 Multivitamin [Multi-Vitamin Daily] 1 each PO DAILY 999 Days tablet 03/30/18 Doxycycline Hyclate 100 mg PO DAILY #5 capsule 06/11/18 Ibuprofen [Motrin] 600 mg PO Q6 5 Days #20 tab 06/13/18 - Allergies Allergies/Adverse Reactions: Allergies Allergy/AdvReac Type Severity Reaction Status Date / Time acetaminophen Allergy ITCHING Verified 06/14/18 15:13 codeine Allergy RASH Verified 06/14/18 15:13 iodine Allergy ITCHING Verified 06/14/18 15:13 ketorolac Allergy ITCHING Verified 06/14/18 15:13 ketorolac tromethamine Allergy RASH Verified 06/14/18 15:13 [From Toradol] Latex, Natural Rubber Allergy ITCHING Verified 06/14/18 15:13 morphine Allergy ITCHING Verified 06/14/18 15:13 orange juice Allergy ITCHING Verified 06/14/18 15:13 Penicillins Allergy ITCHING Verified 06/14/18 15:13 Sulfa (Sulfonamide Allergy RASH Verified 06/14/18 15:13 Antibiotics) tomato Allergy ITCHING Verified 06/13/18 14:57 tramadol Allergy ITCHING Verified 06/13/18 14:57 ondansetron HCl AdvReac Intermediate RASH Verified 06/13/18 14:57 [From Zofran (as hydrochloride)] Review of Systems ROS Statement: Except As Marked, All Systems Reviewed And Found Negative Constitutional: Negative for: Fever, Chills Cardiovascular: Positive for: Chest Pain Respiratory: Negative for: Cough Gastrointestinal: Positive for: Abdominal Pain, Diarrhea. Negative for: Nausea, Vomiting Genitourinary Female: Negative for: Dysuria Neurological: Positive for: Dizziness. Negative for: Headache Physical Exam - Reviewed Nursing Documentation Reviewed: Yes Vital Signs Reviewed: Yes - Physical Exam Appears: Positive for: Well, Non-toxic, No Acute Distress Skin: Positive for: Normal Color. Negative for: Rash Eye Exam: Positive for: Normal appearance Neck: Positive for: Normal Cardiovascular/Chest: Positive for: Regular Rate, Rhythm Respiratory: Positive for: Normal Breath Sounds. Negative for: Wheezing, Respiratory Distress Gastrointestinal/Abdominal: Positive for: Soft. Negative for: Tenderness, Distended, Guarding, Rebound Back: Negative for: L CVA Tenderness, R CVA Tenderness Extremity: Positive for: Normal ROM Neurologic/Psych: Positive for: Alert, Oriented - Laboratory Results Result Diagrams: 06/14/18 16:35 06/14/18 16:35 Urine POC: Negative Urine dip results: Positive for: Blood (moderate). Negative for: Leukocyte Esterase, Nitrate, Ketones, Glucose, Bilirubin, Protein - ECG Interpretation Of ECG: NSR 75 bpm, no acute finding, reviewed by PA and ED attending O2 Sat by Pulse Oximetry: 100 Pulse Ox Interpretation: Normal - Other Rad CXR X-Ray: Interpreted by Me, Viewed By Me X-Ray Interpretation: rotated, no acute finding or interval change Medical Decision Making Medical Decision Makin47 y/o female with multiple complaints Extensive review of previous records completed by music writer. Patient had recent ad mission at [facility] and was discharged on June 12. She then presented yesterday to [facility] and was evaluated in ED and discharged. Patient has history of frequent ED visits at multiple sites. Plan: CXR EKG CBC CMP Trop IVF PO motrin Patient is aware of all diagnostic testing results, all questions answered. Patient is stable for discharge and was instructed to follow up with PMD in 2-3 days. Disposition - Clinical Impression Clinical Impression: Dizziness of unknown cause, Diarrhea Counseled Patient/Family Regarding: Studies Performed, Diagnosis, Need For Followup - Disposition Referrals: Jordi Soliman MD [Family Provider] - Disposition: Routine/Home Disposition Time: 18:49 Condition: STABLE Additional Instructions: Motrin as needed for pain. Rest and drink plenty of fluids. Follow up with primary care doctor on Sunday. Instructions: Vertigo (a Type of Dizziness), Diarrhea in Adolescents and Adults Forms: [employer] [facility] [employer] (Kiswahili)
[2018-06-14] MEDS ORDERED: Sodium Chloride 0.9% 1,000 ML IV STA (15:55)
[2018-06-14 16:55] LABS: ALBUMIN 3.9 g/dL (3.5-5.0); ALT/SGPT 33 U/L (9-52); AST/SGOT 30 U/L (14-36); BLOOD UREA NITROGEN 24 mg/dl (7-17); CALCIUM 11.9 mg/dL (8.4-10.2); GFR NON-AFRICAN AMERICAN > 60
[2018-06-14 17:03] LABS: BASO # 0.1 K/uL (0.0-0.2); BASO % 1.7 % (0.0-2.0); EOS # 0.1 K/uL (0.0-0.7); EOS % 0.9 % (0.0-4.0); HEMOGLOBIN 10.6 g/dL (12.0-16.0); LYMPH # 1.8 K/uL (1.0-4.3); LYMPH % 23.2 % (20.0-40.0); MEAN CORPUSCULAR HEMOGLOBIN 28.2 pg (27.0-31.0); MEAN CORPUSCULAR HGB CONC 32.8 g/dL (33.0-37.0); MEAN PLATELET VOLUME 9.4 fl (7.2-11.7); MONO # 0.7 K/uL (0.0-0.8); MONO % 8.9 % (0.0-10.0); NEUT % 65.3 % (50.0-75.0); NRBC % 0.3 % (0.0-0.0); RBC 3.77 Mil/uL (3.80-5.20); RED CELL DISTRIBUTION WIDTH 14.2 % (11.5-14.5)
[2018-06-14 17:07] LABS: WHITE BLOOD COUNT 7.7 K/uL (4.8-10.8)
--- NOTE | 2018-06-14 19:00 | RAD ---
Date of service: 06/14/2018 HISTORY: chest pain COMPARISON: 05/29/2018 FINDINGS: LUNGS: Examination technically limited due to apical lordotic positioning. No pulmonary infiltrate. PLEURA: No significant pleural effusion identified, no pneumothorax apparent. CARDIOVASCULAR: Normal. OSSEOUS STRUCTURES: No significant abnormalities. VISUALIZED UPPER ABDOMEN: Normal. OTHER FINDINGS: None. IMPRESSION: No active disease.
[2018-06-14 21:34] VITALS: BP 132/74; PULSE 88; RESP 16; O2SAT 98
--- NOTE | 2018-06-14 22:06 | CARD ---
APPROVED REPORT Date of service: 06/14/2018 EKG Measurement Heart [id number] <Conclusion> Normal sinus rhythm Normal ECG
== END 2018-06-14 21:36 | disposition home or self-care (01) ==
LOC: H.ER 15:08
DX: R42 Dizziness and giddiness (principal); R19.7 Diarrhea, unspecified
CPT/HCPCS: 71045; 80053; 81025; 84484; 85025; 87086; 87181; 93005; 96360; 99283; J7030